=== PATIENT | male | born 1940 | race Caucasian/White ===

== ENCOUNTER → 2016-11-12 | Outpatient (CLI) | payer MEDICARE ==
[~2016-11-12] MED LIST: /METO25TAB PO; ASPI81TA85 PO; ENAL20TA PO; ENDO7.5T7 PO; FENO134C PO; FINA5TAB2 PO; FLOM5CAP PO; GABA300C3 PO; GLYB5TAB5 PO; JANU100T PO; LASI80TA PO; LEVO500T PO; LIDO4SO TOP; METF1000 PO; OMEP20CA3 PO; OXYB5TAB PO; OXYC1TAB16 PO; PRAV80TA2 PO; SING4GRA PO; TERA5CA PO; TESTPOW5 TD; VENTAER IN; VITA200016 PO; VITA200019 PO; VITACAP31 PO; WARF4TAB28 PO; [UNRECOGNIZED DRUG - CODE] PO; singulair PO
--- NOTE | 2016-11-25 01:15 | ECWPNPC ---
PATIENT NAME: CHUYITA CHEN : 1940 GENDER: MALE VISIT DATE: 11/12/2016 DISCHARGE DATE: 11/12/16 1200 VISIT LOCKED DATE TIME: PHYSICIAN: DEV HERNANDEZ RESOURCE: DEV HERNANDEZ REASON FOR APPOINTMENT 1. POST FACET HISTORY OF PRESENT ILLNESS HISTORY OF PRESENT ILLNESS: HERE FOR POST PROCEDURE F/U.HAD DIAGNOSTIC RIGHT LUMBAR FACET BLOCK #2 ON 09-04-16.HOURLY PAIN DIARY REVIEWED.THIS IS SHOWING 0/10 VAS X 24HRS POST PROCEURE AND TODAY STATES HE IS 3/10 VAS. DISCUSSED RADIOFREQUENCY PROCEDURE.PAIN IS LOCATED IN RIGHT LOW BACK AND DESCRIBED CONSTATNT SHARP PAIN.PAIN IS AGGREVATED BY PROLONGED STANDING OR WALKING. FALL RISK SCREENING: SCREENING :NO FALLS IN THE PAST YEAR CURRENT MEDICATIONS TAKING VENTOLIN HFA 1-2 PUFFS NEEDED INHALATION NEEDED, NOTES: 10/19/162299 TAKING ASPIRIN ADULT LOW STRENGTH 81 MG 1 TABLET ORALLY ONCE A DAY, NOTES: 10/19/16 0800 TAKING ENALAPRIL MALEATE 20 MG TABLET 1 TABLET ORALLY TWICE A DAY, NOTES: 10/19/16 170 TAKING FINASTERIDE 5 MG TABLET 1 TABLET ORALLY ONCE A DAY, NOTES: 10/19/162299 TAKING FENOFIBRATE 43 MG TABLET 1 TABLET ORALLY ONCE A DAY, NOTES: 10/19/162299 TAKING LIDOCAINE HCL 4 % CREAM EXTERNALLY THREE TIMES DAILY NEEDED, NOTES: NONE RECENTLY TAKING METFORMIN HCL 1000 MG TABLET 1 TABLET WITH MEALS ORALLY TWICE A DAY, NOTES: 10/19/16 170 TAKING METOPROLOL TARTRATE 25 MG TABLET 1 TABLET ORALLY TWICE A DAY, NOTES: 10/20/16 0600 TAKING MONTELUKAST SODIUM 10 MG TABLET ORALLY ONCE A DAY, NOTES: 10/19/16 230 TAKING JANUVIA 50 MG TABLET 1 TABLET ORALLY ONCE A DAY, NOTES: 10/19/16 0800 TAKING VITAMIN D 2000 UNIT CAPSULE 2 ORALLY DAILY, NOTES: 10/20/16 0600 TAKING WARFARIN SODIUM 4 MG TABLET 1-2 TABLET ORALLY DAILY DIRECTED, NOTES: 10/12/16 230 TAKING ATORVASTATIN CALCIUM 40 MG TABLET 1 TABLET ORALLY ONCE A DAY, NOTES: 10/19/16 2400 TAKING GLIPIZIDE 10 MG TABLET 1 TABLET ORALLY TWICE A DAY, NOTES: 10/19/16 230 TAKING ALBUTEROL SULFATE (2.5 MG/3ML) 0.083% NEBULIZATION SOLUTION 3 ML INHALATION THREE TIMES A DAY NEEDED, NOTES: 10/19/162299 TAKING TRIMETHOPRIM 100 MG TABLET 1 TABLET ORALLY ONCE A DAY, NOTES: 10/19/162299 TAKING HYDROCHLOROTHIAZIDE 12.5 MG TABLET ORALLY DAILY, NOTES: 10/19/162299 TAKING SODIUM POLYSTYRENE SULFONATE 15 GM/60ML SUSPENSION 15 ML COMBINATION ONCE A DAY, NOTES: 10/19/16 1600 TAKING TAMSULOSIN HCL 0.4 MG CAPSULE EXTENDED RELEASE ORALLY , NOTES: 10/19/162299 TAKING GABAPENTIN 300 MG CAPSULE 1 CAPSULE ORALLY THREE TIMES A DAY, NOTES: 10/19/162299 TAKING ENDOCET 10-325 MG TABLET 1 ORALLY Q6-8H PRN MDD3 TRACEY, NOTES: 10/19/162299 NOT-TAKING FLOMAX 0.4 MG CAPSULE ORALLY ONCE A DAY, NOTES: 10/19/162299 NOT-TAKING VALIUM 10 MG TABLET 1 ORALLY 1 TAB 1HR PRE PROCEDURE MDD1, NOTES: 06/09/16 1130AM NOT-TAKING VALIUM 10 MG TABLET 1 ORALLY 1 TAB 1HR PRE PROC MDD1 MEDICATION LIST REVIEWED AND RECONCILED WITH THE PATIENT PAST MEDICAL HISTORY 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 NEW PATIENT PAIN DIARY TODAY'S VISITNOTES FROM 0-10, WHAT LEVEL IS YOUR PAIN TODAY?0 PAIN CLINIC PFS, CLERGY, PUBLIC HEALTH REFERRALS PFS REFERRAL NEEDED?NO CLERGY REFERRAL NEEDED?NO PUBLIC HEALTH REFERRAL NEEDED?NO WAS THE PROVIDER NOTIFIED OF ANY PERTINENT INFO?NO PFS REFERRAL NEEDED?NO CLERGY REFERRAL NEEDED?NO PUBLIC HEALTH REFERRAL NEEDED?NO WAS THE PROVIDER NOTIFIED OF ANY PERTINENT INFO?NO REVIEW OF SYSTEMS CONSTITUTIONAL: ANY CHANGE IN YOUR MEDICAL CONDITION? NO . CHILLS NO . FEVER NO . INFECTION: DO YOU HAVE NEW INFECTIONS? NO . DO YOU HAVE HISTORY OF MRSA? NO . MUSCULOSKELETAL: ANY NEW PATTERNS OF PAIN OR NUMBNESS? NO . GASTROENTEROLOGY: ANY NEW CHANGE IN BOWEL CONTROL? NO . GENITOURINARY: ANY NEW CHANGE IN BLADDER CONTROL? NO . IS THERE A CHANCE YOU COULD BE ? NO . HEMATOLOGY/LYMPH: DO YOU TAKE ANY BLOOD THINNERS? (FOR EXAMPLE- COUMADIN, PLAVIX, AGGRENOX, PLATEL, PRADAXA, OR XARELTO) YES, COUMADIN . WHEN WAS YOUR LAST DOSE? DATE:11/11/16 TIME: 2300 . NEUROLOGY: HAVE YOU FALLEN IN THE PAST 6 MONTHS? NO . ANY NEW EXTREMITY NUMBNESS OR WEAKNESS? NO . CARDIOLOGY: DO YOU HAVE A PACEMAKER OR DEFIBRILLATOR? NO . RESPIRATORY: HAVE YOU BEEN SICK IN THE PAST WEEK? NO . FEVER NO . FLU LIKE SYMPTOMS? NO . COUGH NO . INTEGUMENTARY: DO YOU HAVE ANY RASHES OR OPEN SORES? NO . ALLERGIC/IMMUNO: ARE YOU ALLERGIC TO SHELLFISH OR IV DYE? NO . ANY NEW ALLERGIES? NO . PSYCHIATRIC: DO YOU HAVE THOUGHTS OF HURTING YOURSELF OR SOMEONE ELSE? NO . ARE YOU ABUSED, NEGLECTED, OR IN AN UNSAFE ENVIRONMENT? NO . ENDOCRINOLOGY: ARE YOU DIABETIC? YES . OTHER: DO YOU NEED ANY PRESCRIPTIONS? NO . IF YES, PLEASE LIST: ____ . ANY NEW PROBLEMS WITH YOUR MEDICATIONS? NO . WHEN DID YOU LAST EAT? ____ . WHEN DID YOU LAST DRINK? ____ . WHAT DID YOU LAST DRINK? ____ . NAME OF PERSON DRIVING YOU HOME? ____ . DO YOU HAVE ANY OTHER QUESTIONS OR CONCERNS NO . REVIEWED BY: PROVIDER: DEV DELGADO . VITAL SIGNS WT 203 LBS, HT 71 IN, BMI 28.31 INDEX, BP 123/60 MM HG, HR 79 /MIN, RR 18 /MIN, TEMP 96.5 F, OXYGEN SAT % 93, NA INITIALS TL 1118, REVIEWED BY: AD. EXAMINATION GENERAL EXAMINATION: LUNGS:LUNG SOUNDS ARE CLEAR. HEART:HEART RATE REGULAR. MUSCULOSKELETAL:*, PERILUMBAR TENDERNESS R>L. MUSCLE STRENGTH TESTING 3/5 RIGHT AND 5/5 LEFT . DIAGNOSTIC: . ASSESSMENTS LOW BACK PAIN OF OVER 3 MONTHS DURATION - M54.5 (PRIMARY) TREATMENT LOW BACK PAIN OF OVER 3 MONTHS DURATION REFILL ENDOCET TABLET, 10-325 MG, 1, ORALLY, Q6-8H PRN MDD3 TRACEY, 30 DAY(S), 90, REFILLS 0, NOTES: 10/19/16 2300 RF FACET LUMBAR SACRAL EA NOTES: UNDERSTANDING RADIOFREQUENCY DENERVATION MATERIAL WAS PRINTED. PROCEDURE CODES FA211 ESTABILISHED PATIENT [facility] CHARGE G8730 PAIN ASSESS POS TOOL F/U PLAN DOC G8427 DOC MEDS VERIFIED W/PT OR RE FOLLOW UP 1 MOS POST (REASON: RF RIGHT) ELECTRONICALLY SIGNED BY DANNY LEE ON 11/24/2016 AT 02:10 PM EST DISCLAIMER : THIS IS A VISIT SUMMARY EXTRACTED FROM THE [employer] CHART. IT IS NOT A COPY OF THE [employer] PROGRESS NOTE. MTDD
== END ==
LOC: M PAIN 10:40
PROVIDERS: ATTEND Nurse Practitioner Family
DX: Z09 Encounter for follow-up examination after completed treatment for conditions other than malignant neoplasm (principal); M54.5 Low back pain; E11.9 Type 2 diabetes mellitus without complications; I48.91 Unspecified atrial fibrillation; J30.2 Other seasonal allergic rhinitis; J30.81 Allergic rhinitis due to animal (cat) (dog) hair and dander; Z79.01 Long term (current) use of anticoagulants; Z79.82 Long term (current) use of aspirin; Z79.84 Long term (current) use of oral hypoglycemic drugs; Z79.899 Other long term (current) drug therapy; Z86.79 Personal history of other diseases of the circulatory system

== ENCOUNTER → 2017-01-11 | Outpatient (CLI) | payer MEDICARE ==
[~2017-01-11] MED LIST changes: +BUPIVACAINE HCL 0.25% 30 ML VIAL As Ordered ONE; +ISOVUE-M 300 61% 15ML VIAL (Q9967) As Ordered ONE; +LIDOCAINE 1% SDV INJ 30 ML VIAL As Ordered ONE; +TRIAMCINOLONE ACETONIDE SUSP 40 MG/ML VIAL (J3301) As Ordered ONE
--- NOTE | 2017-01-11 13:34 | REP ---
Partial lumbar spine series: Two views. History: Injection procedure for pain. 1 minute and 55 seconds of fluoroscopy time is reported. Findings: A sequence of three fluoroscopically obtained last image hold spot radiographs of the lumbar spine document various needle positions for injection procedure. Signed by Sandro Alex MD 01/11/2017 07:16 P
--- NOTE | 2017-01-17 23:50 | ECWPNPC ---
PATIENT NAME: CHUYITA CHEN : 1940 GENDER: MALE VISIT DATE: 01/11/2017 DISCHARGE DATE: 01/11/17 1315 VISIT LOCKED DATE TIME: PHYSICIAN: ARMANI ROSA RESOURCE: ARMANI ROSA REASON FOR APPOINTMENT 1. RADIOFREQUENCY HISTORY OF PRESENT ILLNESS HISTORY OF PRESENT ILLNESS: PAIN THE PATIENT DESCRIBES THE PAIN... FALL RISK SCREENING: SCREENING :NO FALLS IN THE PAST YEAR CURRENT MEDICATIONS TAKING VENTOLIN HFA 1-2 PUFFS NEEDED INHALATION NEEDED, NOTES: 01/11 0800 TAKING ASPIRIN ADULT LOW STRENGTH 81 MG 1 TABLET ORALLY ONCE A DAY, NOTES: 01/10 0700 TAKING ENALAPRIL MALEATE 20 MG TABLET 1 TABLET ORALLY TWICE A DAY, NOTES: 01/11 0700 TAKING FINASTERIDE 5 MG TABLET 1 TABLET ORALLY ONCE A DAY, NOTES: 01/10 12PM TAKING FENOFIBRATE 43 MG TABLET 1 TABLET ORALLY ONCE A DAY, NOTES: 01/10 12PM TAKING LIDOCAINE HCL 4 % CREAM EXTERNALLY THREE TIMES DAILY NEEDED, NOTES: NONE RECENTLY TAKING METFORMIN HCL 1000 MG TABLET 1 TABLET WITH MEALS ORALLY TWICE A DAY, NOTES: 01/10 6PM TAKING METOPROLOL TARTRATE 25 MG TABLET 1 TABLET ORALLY TWICE A DAY, NOTES: 01/10 6PM TAKING MONTELUKAST SODIUM 10 MG TABLET ORALLY ONCE A DAY, NOTES: 01/10 11PM TAKING JANUVIA 50 MG TABLET 1 TABLET ORALLY ONCE A DAY, NOTES: 01/10 6PM TAKING VITAMIN D 2000 UNIT CAPSULE 2 ORALLY DAILY, NOTES: 01/11 7AM TAKING WARFARIN SODIUM 4 MG TABLET 1-2 TABLET ORALLY DAILY DIRECTED, NOTES: 01/04 2300 TAKING ATORVASTATIN CALCIUM 40 MG TABLET 1 TABLET ORALLY ONCE A DAY, NOTES: 01/10 6PM TAKING GLIPIZIDE 10 MG TABLET 1 TABLET ORALLY TWICE A DAY, NOTES: 01/10 6PM TAKING ALBUTEROL SULFATE (2.5 MG/3ML) 0.083% NEBULIZATION SOLUTION 3 ML INHALATION THREE TIMES A DAY NEEDED, NOTES: 01/11 3AM TAKING TRIMETHOPRIM 100 MG TABLET 1 TABLET ORALLY ONCE A DAY, NOTES: 01/10 7PM TAKING HYDROCHLOROTHIAZIDE 12.5 MG TABLET ORALLY DAILY, NOTES: 01/11 7AM TAKING SODIUM POLYSTYRENE SULFONATE 15 GM/60ML SUSPENSION 15 ML COMBINATION ONCE A DAY, NOTES: 01/10 7PM TAKING TAMSULOSIN HCL 0.4 MG CAPSULE EXTENDED RELEASE ORALLY , NOTES: 01/10 7PM TAKING GABAPENTIN 300 MG CAPSULE 1 CAPSULE ORALLY THREE TIMES A DAY, NOTES: 01/10 6AM TAKING ENDOCET 10-325 MG TABLET 1 ORALLY Q6-8H PRN MDD3 TRACEY, NOTES: 01/10 6AM NOT-TAKING FLOMAX 0.4 MG CAPSULE ORALLY ONCE A DAY, NOTES: 10/19/16 2300 NOT-TAKING VALIUM 10 MG TABLET 1 ORALLY 1 TAB 1HR PRE PROCEDURE MDD1, NOTES: 06/09/16 1130AM NOT-TAKING VALIUM 10 MG TABLET 1 ORALLY 1 TAB 1HR PRE PROC MDD1 MEDICATION LIST REVIEWED AND RECONCILED WITH THE PATIENT PAST MEDICAL HISTORY 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 NEW PATIENT PAIN DIARY TODAY'S VISITNOTES FROM 0-10, WHAT LEVEL IS YOUR PAIN TODAY?0 PAIN CLINIC PFS, CLERGY, PUBLIC HEALTH REFERRALS PFS REFERRAL NEEDED?NO CLERGY REFERRAL NEEDED?NO PUBLIC HEALTH REFERRAL NEEDED?NO WAS THE PROVIDER NOTIFIED OF ANY PERTINENT INFO?NO PFS REFERRAL NEEDED?NO CLERGY REFERRAL NEEDED?NO PUBLIC HEALTH REFERRAL NEEDED?NO WAS THE PROVIDER NOTIFIED OF ANY PERTINENT INFO?NO REVIEW OF SYSTEMS CONSTITUTIONAL: ANY CHANGE IN YOUR MEDICAL CONDITION? NO . CHILLS NO . FEVER NO . INFECTION: DO YOU HAVE NEW INFECTIONS? NO . DO YOU HAVE HISTORY OF MRSA? NO . MUSCULOSKELETAL: ANY NEW PATTERNS OF PAIN OR NUMBNESS? NO . GASTROENTEROLOGY: ANY NEW CHANGE IN BOWEL CONTROL? NO . GENITOURINARY: ANY NEW CHANGE IN BLADDER CONTROL? NO . IS THERE A CHANCE YOU COULD BE ? NO . HEMATOLOGY/LYMPH: DO YOU TAKE ANY BLOOD THINNERS? (FOR EXAMPLE- COUMADIN, PLAVIX, AGGRENOX, PLATEL, PRADAXA, OR XARELTO) YES, 01/04/17 2300 WARFARIN . WHEN WAS YOUR LAST DOSE? DATE: TIME: . NEUROLOGY: HAVE YOU FALLEN IN THE PAST 6 MONTHS? NO . ANY NEW EXTREMITY NUMBNESS OR WEAKNESS? NO . CARDIOLOGY: DO YOU HAVE A PACEMAKER OR DEFIBRILLATOR? NO . RESPIRATORY: HAVE YOU BEEN SICK IN THE PAST WEEK? NO . FEVER NO . FLU LIKE SYMPTOMS? NO . COUGH NO . INTEGUMENTARY: DO YOU HAVE ANY RASHES OR OPEN SORES? NO . ALLERGIC/IMMUNO: ARE YOU ALLERGIC TO SHELLFISH OR IV DYE? NO . ANY NEW ALLERGIES? NO . PSYCHIATRIC: DO YOU HAVE THOUGHTS OF HURTING YOURSELF OR SOMEONE ELSE? NO . ARE YOU ABUSED, NEGLECTED, OR IN AN UNSAFE ENVIRONMENT? NO . ENDOCRINOLOGY: ARE YOU DIABETIC? YES, FSBS 147 . OTHER: DO YOU NEED ANY PRESCRIPTIONS? NO . IF YES, PLEASE LIST: ____ . ANY NEW PROBLEMS WITH YOUR MEDICATIONS? NO . WHEN DID YOU LAST EAT? 01/10 2300 . WHEN DID YOU LAST DRINK? 01/11 0600 . WHAT DID YOU LAST DRINK? WATER . NAME OF PERSON DRIVING YOU HOME? CAMACHO - . DO YOU HAVE ANY OTHER QUESTIONS OR CONCERNS OCCASIONAL SMOKER, REFUSES ANY SMOKING CESSATION COUSELING AT THIS TIME . REVIEWED BY: PROVIDER: . VITAL SIGNS WT 210 LBS, HT 71 IN, BMI 29.29 INDEX, BP 127/58 MM HG, HR 83 /MIN, RR 18 /MIN, TEMP 96.5 F, OXYGEN SAT % 93, BLOOD GLUCOSE LEVEL 147, SAFE IN ENV? (Y/N) Y, NA INITIALS TL 1051, REVIEWED BY: DS. ASSESSMENTS SPONDYLOSIS WITHOUT MYELOPATHY OR RADICULOPATHY, LUMBAR REGION - M47.816 (PRIMARY) SPONDYLOSIS WITHOUT MYELOPATHY OR RADICULOPATHY, LUMBOSACRAL REGION - M47.817 PROCEDURES PN RADIOFREQUENCY PRE PROCEDURE DIAGNOSES 1. LUMBAR SPONDYLOSIS. 2. LUMBOSACRAL SPONDYLOSIS POST PROCEDURE DIAGNOSES 1. LUMBAR SPONDYLOSIS. 2. LUMBOSACRAL SPONDYLOSIS PROCEDURE RIGHT L4-L5 AND RIGHT L5-S1 LUMBAR FACET RADIOFREQUENCY SURGEON DR. ARMANI ROSA PURCHASING MANAGER NONE ANESTHESIA LOCAL PRE PROCEDURE REPORT THE PATIENT HAS HISTORY OF CHRONIC LOW BACK PAIN. I EVALUATE THE PATIENT AND REVIEWED THE CHART. I WENT OVER THE RISKS, ALTERNATIVES, AND BENEFITS ASSOCIATED WITH THIS PROCEDURE. THE PATIENT WOULD LIKE TO PROCEED AND GIVE CONSENT TO PERFORMED THE PROCEDURE. THE PATIENT DENIES UNEXPLAINABLE WEIGHT LOSS, FEVER, CHILLS, OR NEW CHANGES IN URINARY OR BOWEL CONTROL DESCRIPTION OF PROCEDURE THE PATIENT WAS BROUGHT TO THE PROCEDURE ROOM AND PLACED IN THE PRONE POSITION. THE LUMBOSACRAL AREA WAS CLEANED WITH CHLORAPREP SOLUTION AND DRAPED ASEPTICALLY. THE PROCEDURE WAS DONE UNDER STERILE CONDITIONS. I CHECKED LATERALITY AND THE LEVEL WHERE THE PROCEDURE WAS GOING TO BE PERFORMED WITH THE PATIENT AND THE SUPPORTING STAFF AT THE MOMENT OF THE TIME OUT IN THE PROCEDURE ROOM. UNDER FLUOROSCOPIC GUIDANCE, TARGETS WERE SELECTED AT THE INTERSECTION OF THE RIGHT TRANSVERSE PROCESS OF L4, L5 AND ALA OF S1 WITH ITS RESPECTIVE SUPERIOR ARTICULAR PROCESS. LIDOCAINE WAS USED TO NUMB THE SKIN AND THE SUBCUTANEOUS TISSUE BELOW IT. RADIOFREQUENCY NEEDLES 22-GAUGE 15 CM LONG WITH 10 MM ACTIVE CURVE TIP WERE ADVANCED UNDER FLUOROSCOPIC GUIDANCE AND FOLLOWING PATIENT FEEDBACK UNTIL THE TARGET AREA WAS REACHED. POSITION OF THE NEEDLES WAS VERIFIED WITH AP AND LATERAL VIEWS. AFTER PROPER POSITION OF THE NEEDLE WAS ACHIEVED, WE WORKED WITH THE RIGHT SELECTED MEDIAN BRANCHES OF L3, L4 AND THE DORSAL RAMI OF L5. WE MEASURED THE CORRESPONDING IMPEDANCES, SENSORY STIMULATION AND MOTOR RESPONSES INDICATED IN THE RADIOFREQUENCY WORKSHEET. POSITION OF THE NEEDLES WAS VERIFIED AGAIN WITH AP AND LATERAL VIEWS. LIDOCAINE 1%, 2 ML, WAS INJECTED AT EACH LEVEL. RADIOFREQUENCY WAS DONE AT EACH LEVEL AT 80 DEGREES FOR 90 SECONDS. AFTER RADIOFREQUENCY WAS DONE, THE PATIENT RECEIVED BUPIVACAINE 0.125% 1 CC WITH KENALOG 5 MG AT EACH SITE. THERE WAS NO EVIDENCE OF BLOOD, PARESTHESIA OR CEREBROSPINAL FLUID DURING THE PROCEDURE. THE PATIENT WAS SENT TO THE RECOVERY ROOM. THE PATIENT WAS MOVING THE EXTREMITIES AND DOING WELL. THERE WAS NO COMPLICATION DURING THE PROCEDURE. FLUOROSCOPY TIME WAS I MINUTE 55 SECONDS POST PROCEDURE NOTE THE PATIENT WILL BE SEEN IN A FOLLOW UP IN THE NEXT FEW WEEKS. INSTRUCTIONS WERE GIVEN, QUESTIONS WERE ANSWERED, AND THE PATIENT EXPRESSED UNDERSTANDING AND AGREES WITH THE PLAN. I, VICTOR M TAVERA, DOCUMENTED THE ABOVE INFORMATION ACTING A SCRIBE FOR DR. ROSA. I, DR. ROSA, HAVE REVIEWED THE ABOVE DOCUMENT, SCRIBED BY VICTOR M TAVERA, AND I VERIFY THAT IT IS ACCURATE DIAGNOSTIC IMAGING [facility] FACET BLOCK (PAIN)[id number] PROCEDURE CODES 07757 DESTROY LUMB/SAC FACET JNT 83845 DESTROY L/S FACET JNT ADDL 6045F RADXPS IN END [id number] DISPOSITION & COMMUNICATION FOLLOW UP 3 WEEKS ELECTRONICALLY SIGNED BY ARMANI ROSA MD ON 01/17/2017 AT 08:54 PM EDT DISCLAIMER : THIS IS A VISIT SUMMARY EXTRACTED FROM THE [employer] CHART. IT IS NOT A COPY OF THE [employer] PROGRESS NOTE. MTDD
== END ==
LOC: M PAIN 11:00
PROVIDERS: ATTEND Anesthesiology
DX: G89.29 Other chronic pain (principal); M48.06 Spinal stenosis, lumbar region; M47.816 Spondylosis without myelopathy or radiculopathy, lumbar region; M47.817 Spondylosis without myelopathy or radiculopathy, lumbosacral region; E11.9 Type 2 diabetes mellitus without complications; I48.91 Unspecified atrial fibrillation; J30.89 Other allergic rhinitis; L23.81 Allergic contact dermatitis due to animal (cat) (dog) dander; Z79.891 Long term (current) use of opiate analgesic; Z79.82 Long term (current) use of aspirin; Z79.84 Long term (current) use of oral hypoglycemic drugs; Z79.899 Other long term (current) drug therapy; Z86.79 Personal history of other diseases of the circulatory system
CPT/HCPCS: 36415; 64635; 64636; 85610; J3301; Q9967

== ENCOUNTER → 2017-01-11 | Outpatient (CLI) | payer MEDICARE ==
[~2017-01-11] MED LIST changes: -BUPIVACAINE HCL 0.25% 30 ML VIAL As Ordered ONE; -ISOVUE-M 300 61% 15ML VIAL (Q9967) As Ordered ONE; -LIDOCAINE 1% SDV INJ 30 ML VIAL As Ordered ONE; -TRIAMCINOLONE ACETONIDE SUSP 40 MG/ML VIAL (J3301) As Ordered ONE
[2017-01-11 10:43] LABS: INR 0.96
== END ==
LOC: M LAB 11-12 09:50
PROVIDERS: ATTEND Nurse Practitioner Family
DX: M48.06 Spinal stenosis, lumbar region (principal)

== ENCOUNTER → 2017-02-03 | Outpatient (CLI) | payer MEDICARE ==
[~2017-02-03] MED LIST changes: +GABA-282 PO; -GABA300C3 PO
--- NOTE | 2017-02-11 01:17 | ECWPNPC ---
PATIENT NAME: CHUYITA CHEN : 1940 GENDER: MALE VISIT DATE: 02/03/2017 DISCHARGE DATE: 02/03/17 1221 VISIT LOCKED DATE TIME: PHYSICIAN: DEV HERNANDEZ RESOURCE: DEV HERNANDEZ REASON FOR APPOINTMENT 1. POST RF HISTORY OF PRESENT ILLNESS HISTORY OF PRESENT ILLNESS: HERE FOR POST PROCEDURE F/U.HAD RIGHT L4/5-L5/S1 RADIOFREQUENCY ON 01-11-17.REPORTS SIGNIFICANT IMPROVEMENT IN PAIN POST PROCEDURE.RATING PAIN VAS 3/10.REPORTS ENDOCET 10/325 EFFECTIVE AT REDUCING PAIN.DESCRIBES PAIN CONSTANT AND SHARP. PAIN THE PATIENT DESCRIBES THE PAIN... FALL RISK SCREENING: SCREENING :NO FALLS IN THE PAST YEAR CURRENT MEDICATIONS TAKING VENTOLIN HFA 1-2 PUFFS NEEDED INHALATION NEEDED, NOTES: 01/11 0800 TAKING ASPIRIN ADULT LOW STRENGTH 81 MG 1 TABLET ORALLY ONCE A DAY, NOTES: 01/10 0700 TAKING ENALAPRIL MALEATE 20 MG TABLET 1 TABLET ORALLY TWICE A DAY, NOTES: 01/11 0700 TAKING FINASTERIDE 5 MG TABLET 1 TABLET ORALLY ONCE A DAY, NOTES: 01/10 12PM TAKING FENOFIBRATE 43 MG TABLET 1 TABLET ORALLY ONCE A DAY, NOTES: 01/10 12PM TAKING LIDOCAINE HCL 4 % CREAM EXTERNALLY THREE TIMES DAILY NEEDED, NOTES: NONE RECENTLY TAKING METFORMIN HCL 1000 MG TABLET 1 TABLET WITH MEALS ORALLY TWICE A DAY, NOTES: 01/10 6PM TAKING METOPROLOL TARTRATE 25 MG TABLET 1 TABLET ORALLY TWICE A DAY, NOTES: 01/10 6PM TAKING MONTELUKAST SODIUM 10 MG TABLET ORALLY ONCE A DAY, NOTES: 01/10 11PM TAKING JANUVIA 50 MG TABLET 1 TABLET ORALLY ONCE A DAY, NOTES: 01/10 6PM TAKING VITAMIN D 2000 UNIT CAPSULE 2 ORALLY DAILY, NOTES: 01/11 7AM TAKING WARFARIN SODIUM 4 MG TABLET 1 TABLET ORALLY DAILY DIRECTED, NOTES: 01/04 2300 TAKING ATORVASTATIN CALCIUM 40 MG TABLET 1 TABLET ORALLY ONCE A DAY, NOTES: 01/10 6PM TAKING GLIPIZIDE 10 MG TABLET 1 TABLET ORALLY TWICE A DAY, NOTES: 01/10 6PM TAKING ALBUTEROL SULFATE (2.5 MG/3ML) 0.083% NEBULIZATION SOLUTION 3 ML INHALATION THREE TIMES A DAY NEEDED, NOTES: 01/11 3AM TAKING HYDROCHLOROTHIAZIDE 12.5 MG TABLET ORALLY DAILY, NOTES: 01/11 7AM TAKING SODIUM POLYSTYRENE SULFONATE 15 GM/60ML SUSPENSION 15 ML COMBINATION ONCE A DAY, NOTES: 01/10 7PM TAKING TAMSULOSIN HCL 0.4 MG CAPSULE EXTENDED RELEASE ORALLY , NOTES: 01/10 7PM TAKING GABAPENTIN 300 MG CAPSULE 1 CAPSULE ORALLY THREE TIMES A DAY, NOTES: 01/10 6AM TAKING ENDOCET 10-325 MG TABLET 1 ORALLY Q6-8H PRN MDD3 TRACEY, NOTES: 01/10 6AM NOT-TAKING FLOMAX 0.4 MG CAPSULE ORALLY ONCE A DAY, NOTES: 10/19/16 2300 NOT-TAKING VALIUM 10 MG TABLET 1 ORALLY 1 TAB 1HR PRE PROCEDURE MDD1, NOTES: 06/09/16 1130AM NOT-TAKING VALIUM 10 MG TABLET 1 ORALLY 1 TAB 1HR PRE PROC MDD1 DISCONTINUED TRIMETHOPRIM 100 MG TABLET 1 TABLET ORALLY ONCE A DAY, NOTES: 01/10 7PM MEDICATION LIST REVIEWED AND RECONCILED WITH THE PATIENT PAST MEDICAL HISTORY 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 REVIEW OF SYSTEMS CONSTITUTIONAL: ANY CHANGE IN YOUR MEDICAL CONDITION? NO . CHILLS NO . FEVER NO . INFECTION: DO YOU HAVE NEW INFECTIONS? NO . DO YOU HAVE HISTORY OF MRSA? NO . MUSCULOSKELETAL: ANY NEW PATTERNS OF PAIN OR NUMBNESS? NO . GASTROENTEROLOGY: ANY NEW CHANGE IN BOWEL CONTROL? NO . GENITOURINARY: ANY NEW CHANGE IN BLADDER CONTROL? NO . IS THERE A CHANCE YOU COULD BE ? NO . HEMATOLOGY/LYMPH: DO YOU TAKE ANY BLOOD THINNERS? (FOR EXAMPLE- COUMADIN, PLAVIX, AGGRENOX, PLATEL, PRADAXA, OR XARELTO) YES COUMADIN . WHEN WAS YOUR LAST DOSE? DATE: TIME: . NEUROLOGY: HAVE YOU FALLEN IN THE PAST 6 MONTHS? NO . ANY NEW EXTREMITY NUMBNESS OR WEAKNESS? NO . CARDIOLOGY: DO YOU HAVE A PACEMAKER OR DEFIBRILLATOR? NO . RESPIRATORY: HAVE YOU BEEN SICK IN THE PAST WEEK? NO . FEVER NO . FLU LIKE SYMPTOMS? NO . COUGH NO . INTEGUMENTARY: DO YOU HAVE ANY RASHES OR OPEN SORES? NO . ALLERGIC/IMMUNO: ARE YOU ALLERGIC TO SHELLFISH OR IV DYE? NO . ANY NEW ALLERGIES? NO . PSYCHIATRIC: DO YOU HAVE THOUGHTS OF HURTING YOURSELF OR SOMEONE ELSE? NO . ARE YOU ABUSED, NEGLECTED, OR IN AN UNSAFE ENVIRONMENT? NO . ENDOCRINOLOGY: ARE YOU DIABETIC? YES . OTHER: DO YOU NEED ANY PRESCRIPTIONS? NO . IF YES, PLEASE LIST: ____ . ANY NEW PROBLEMS WITH YOUR MEDICATIONS? NO . WHEN DID YOU LAST EAT? ____ . WHEN DID YOU LAST DRINK? ____ . WHAT DID YOU LAST DRINK? ____ . NAME OF PERSON DRIVING YOU HOME? ____ . DO YOU HAVE ANY OTHER QUESTIONS OR CONCERNS NO . REVIEWED BY: PROVIDER: DEV DELGADO . VITAL SIGNS WT 210.0 LBS, HT 71 IN, BMI 29.29 INDEX, BP 116/54 MM HG, HR 85 /MIN, RR 18 /MIN, TEMP 98.1 F, OXYGEN SAT % 91%, NA INITIALS TL 1127, REVIEWED BY: MLF. EXAMINATION GENERAL EXAMINATION: LUNGS:LUNG SOUNDS ARE CLEAR. HEART:HEART RATE REGULAR. MUSCULOSKELETAL:*, PERILUMBAR TENDERNESS R>L. MUSCLE STRENGTH TESTING 3/5 RIGHT AND 5/5 LEFT . DIAGNOSTIC: . ASSESSMENTS LOW BACK PAIN OF OVER 3 MONTHS DURATION - M54.5 CHRONIC PRESCRIPTION OPIATE USE - Z79.891 TREATMENT LOW BACK PAIN OF OVER 3 MONTHS DURATION REFILL ENDOCET TABLET, 10-325 MG, 1, ORALLY, Q6-8H PRN MDD3 TRACEY, 30 DAY(S), 90, REFILLS 0, NOTES: 01/10 6AM NOTES: PATIENT WAS ADVISED TO START A WALKING PROGRAM TO STRENGTHEN LUMBAR PARASPINAL MUSCLES AND IMPROVE MOBILITY. THEY WERE ADVISED THAT THIS WILL IMPROVE WEIGHT LOSS AND ALSO DEPRESSION/FIBROMYALGIA SYMPTOMS. ADVISED TO WALK 10 MINUTES EVERY OTHER DAY ON A FLAT SURFACE. EMPHASIZED THE IMPORTANCE OF DOING THIS CONSISTANTLY AND NOT SPORATICALLY TO AVOID INJURY. STRONG ADVISED NOT TO DO MORE THAN 10 MINUTES EVERY OTHER DSY FOR THE FIRST 4 WEEKS. OTHERS NOTES: ISTOP REGISTRY REVIEWED AND DEMNOSTRATES COMPLLIANCE. BRINGS IN MEDICATIONS WHICH IS APPROPRIATE FOR WHAT WAS DISPENSED. RECENT URINE TOXICOLOGY REVIEWED. NO UNAUTHORIZED MEDICATIONS. NO ILLICIT SUBSTANCES AND PRESCRIBED MEDICATIONS WERE PRESENT. , RISKS AND BENEFITS OF NARCOTIC/OPIOD MEDICATIONS WERE REVIEWED WITH PATIENT - THIS INCLUDES BUT IS NOT LIMITED TO RISK OF DEPENDANCE/DEVELOPMENT OF ADDICTION, MOOD DISTURBANCE AND DEPRESSION, OSTEOPOROSIS, HORMONAL AND LABIDAL CHANGES, RESPIRATORY DEPRESSION AND . PATIENT IS ADVISED NOT TO DRIVE WHILE ON THESE MEDICATIONS. PROCEDURE CODES FA211 ESTABILISHED PATIENT [facility] CHARGE G8730 PAIN ASSESS POS TOOL F/U PLAN DOC G8427 DOC MEDS VERIFIED W/PT OR RE DISPOSITION & COMMUNICATION FOLLOW UP 4 WEEKS ELECTRONICALLY SIGNED BY DANNY LEE ON 02/10/2017 AT 06:14 PM EDT DISCLAIMER : THIS IS A VISIT SUMMARY EXTRACTED FROM THE [employer] CHART. IT IS NOT A COPY OF THE [employer] PROGRESS NOTE. RAMANDEEP
== END ==
LOC: M PAIN 11:00
PROVIDERS: ATTEND Nurse Practitioner Family
DX: Z09 Encounter for follow-up examination after completed treatment for conditions other than malignant neoplasm (principal); M54.5 Low back pain; N40.0 Benign prostatic hyperplasia without lower urinary tract symptoms; I25.2 Old myocardial infarction; I48.91 Unspecified atrial fibrillation; E11.9 Type 2 diabetes mellitus without complications; Z79.82 Long term (current) use of aspirin; Z79.891 Long term (current) use of opiate analgesic; Z79.84 Long term (current) use of oral hypoglycemic drugs; Z79.01 Long term (current) use of anticoagulants; Z91.048 Other nonmedicinal substance allergy status

== ENCOUNTER → 2017-03-04 | Outpatient (CLI) | payer MEDICARE ==
--- NOTE | 2017-03-18 01:21 | ECWPNPC ---
PATIENT NAME: CHUYITA CHEN : 1940 GENDER: MALE VISIT DATE: 03/04/2017 DISCHARGE DATE: 03/04/17 1510 VISIT LOCKED DATE TIME: PHYSICIAN: DEV HERNANDEZ RESOURCE: DEV HERNANDEZ HISTORY OF PRESENT ILLNESS HISTORY OF PRESENT ILLNESS: HERE FOR F/U.HAD RF L4/5-L5/S1 ON 01-11-17.WAS DOING WELL BUT HAS BEEN HAVING BALANCE ISSUES AND HAS FALLEN 3X THIS PAST WEEK.RATING PAIN VAS 3/10.DESCRIBES PAIN CONSTANT SHARP PAIN.PAIN HAS BEEN AGGREVATED BY FALLING BUT SEEMS TO BE DISIPATING. PAIN THE PATIENT DESCRIBES THE PAIN... FALL RISK SCREENING: SCREENING :NO FALLS IN THE PAST YEAR CURRENT MEDICATIONS TAKING VENTOLIN HFA 1-2 PUFFS NEEDED INHALATION NEEDED TAKING ASPIRIN ADULT LOW STRENGTH 81 MG 1 TABLET ORALLY ONCE A DAY TAKING ENALAPRIL MALEATE 20 MG TABLET 1 TABLET ORALLY TWICE A DAY TAKING FINASTERIDE 5 MG TABLET 1 TABLET ORALLY ONCE A DAY TAKING FENOFIBRATE 43 MG TABLET 1 TABLET ORALLY ONCE A DAY TAKING LIDOCAINE HCL 4 % CREAM EXTERNALLY THREE TIMES DAILY NEEDED TAKING METFORMIN HCL 1000 MG TABLET 1 TABLET WITH MEALS ORALLY TWICE A DAY TAKING METOPROLOL TARTRATE 25 MG TABLET 1 TABLET ORALLY TWICE A DAY TAKING MONTELUKAST SODIUM 10 MG TABLET ORALLY ONCE A DAY TAKING JANUVIA 50 MG TABLET 1 TABLET ORALLY ONCE A DAY TAKING VITAMIN D 2000 UNIT CAPSULE 2 ORALLY DAILY TAKING WARFARIN SODIUM 4 MG TABLET 1 TABLET ORALLY DAILY DIRECTED TAKING ATORVASTATIN CALCIUM 40 MG TABLET 1 TABLET ORALLY ONCE A DAY TAKING GLIPIZIDE 10 MG TABLET 1 TABLET ORALLY TWICE A DAY TAKING ALBUTEROL SULFATE (2.5 MG/3ML) 0.083% NEBULIZATION SOLUTION 3 ML INHALATION THREE TIMES A DAY NEEDED TAKING HYDROCHLOROTHIAZIDE 12.5 MG TABLET ORALLY DAILY TAKING SODIUM POLYSTYRENE SULFONATE 15 GM/60ML SUSPENSION 15 ML COMBINATION ONCE A DAY TAKING TAMSULOSIN HCL 0.4 MG CAPSULE EXTENDED RELEASE ORALLY TAKING GABAPENTIN 300 MG CAPSULE 1 CAPSULE ORALLY THREE TIMES A DAY TAKING ENDOCET 10-325 MG TABLET 1 ORALLY Q6-8H PRN MDD3 TRACEY NOT-TAKING FLOMAX 0.4 MG CAPSULE ORALLY ONCE A DAY, NOTES: 10/19/16 2300 NOT-TAKING VALIUM 10 MG TABLET 1 ORALLY 1 TAB 1HR PRE PROCEDURE MDD1, NOTES: 06/09/16 1130AM NOT-TAKING VALIUM 10 MG TABLET 1 ORALLY 1 TAB 1HR PRE PROC MDD1 MEDICATION LIST REVIEWED AND RECONCILED WITH THE PATIENT PAST MEDICAL HISTORY 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 NO . CHILLS NO . FEVER NO . INFECTION: DO YOU HAVE NEW INFECTIONS? NO . DO YOU HAVE HISTORY OF MRSA? NO . MUSCULOSKELETAL: ANY NEW PATTERNS OF PAIN OR NUMBNESS? NO . GASTROENTEROLOGY: ANY NEW CHANGE IN BOWEL CONTROL? NO . GENITOURINARY: ANY NEW CHANGE IN BLADDER CONTROL? NO . IS THERE A CHANCE YOU COULD BE ? NO . HEMATOLOGY/LYMPH: DO YOU TAKE ANY BLOOD THINNERS? (FOR EXAMPLE- COUMADIN, PLAVIX, AGGRENOX, PLATEL, PRADAXA, OR XARELTO) YES, COUMADIN . WHEN WAS YOUR LAST DOSE? DATE: TIME: 03/04/17 2300 . NEUROLOGY: HAVE YOU FALLEN IN THE PAST 6 MONTHS? YES, 3X'S LAST WEEK--SCRAPES AND BRUISES ON BACK, LEFT RIBS, PAIN STERUM AND BACK. NOT SEEN &NBSP;. ANY NEW EXTREMITY NUMBNESS OR WEAKNESS? &NBSP;&NBSP; NO&NBSP;. CARDIOLOGY: DO YOU HAVE A PACEMAKER OR DEFIBRILLATOR? NO . RESPIRATORY: HAVE YOU BEEN SICK IN THE PAST WEEK? NO . FEVER NO . FLU LIKE SYMPTOMS? NO . COUGH NO . INTEGUMENTARY: DO YOU HAVE ANY RASHES OR OPEN SORES? NO . ALLERGIC/IMMUNO: ARE YOU ALLERGIC TO SHELLFISH OR IV DYE? NO . ANY NEW ALLERGIES? NO . PSYCHIATRIC: DO YOU HAVE THOUGHTS OF HURTING YOURSELF OR SOMEONE ELSE? NO . ARE YOU ABUSED, NEGLECTED, OR IN AN UNSAFE ENVIRONMENT? NO . ENDOCRINOLOGY: ARE YOU DIABETIC? YES . OTHER: DO YOU NEED ANY PRESCRIPTIONS? YES, LIDOCAINE CREAM, ENDOCET, GABAPENTIN . IF YES, PLEASE LIST: ____ . ANY NEW PROBLEMS WITH YOUR MEDICATIONS? NO . WHEN DID YOU LAST EAT? ____ . WHEN DID YOU LAST DRINK? ____ . WHAT DID YOU LAST DRINK? ____ . NAME OF PERSON DRIVING YOU HOME? ____ . DO YOU HAVE ANY OTHER QUESTIONS OR CONCERNS NO . REVIEWED BY: PROVIDER: DEV DELGADO . VITAL SIGNS WT 220.4 LBS, HT 71 IN, BMI 30.74 INDEX, BP 130/60 MM HG, HR 80 /MIN, RR 20 /MIN, TEMP 98.7 F, OXYGEN SAT % 92%, NA INITIALS TL 1431, REVIEWED BY: ADPT WEIGHED ON PMC SCALE- TL. EXAMINATION GENERAL EXAMINATION: LUNGS:LUNG SOUNDS ARE CLEAR. HEART:HEART RATE REGULAR. MUSCULOSKELETAL:*, PERILUMBAR TENDERNESS R>L. MUSCLE STRENGTH TESTING 3/5 RIGHT AND 5/5 LEFT . DIAGNOSTIC: . ASSESSMENTS LOW BACK PAIN OF OVER 3 MONTHS DURATION - M54.5 (PRIMARY) CHRONIC PRESCRIPTION OPIATE USE - Z79.891 TREATMENT LOW BACK PAIN OF OVER 3 MONTHS DURATION REFILL LIDOCAINE HCL CREAM, 4 %, SMALL AMOUNT TO LOW BACK, EXTERNALLY, THREE TIMES DAILY NEEDED, 30 DAY(S), 1, REFILLS 5 CONTINUE GABAPENTIN CAPSULE, 300 MG, 1 CAPSULE, ORALLY, THREE TIMES A DAY, 30 DAY(S), 90 CAPSULE, REFILLS 2 REFILL ENDOCET TABLET, 10-325 MG, 1, ORALLY, Q6-8H PRN MDD3 TRACEY, 30 DAY(S), 90, REFILLS 0 NOTES: ISTOP REGISTRY REVIEWED AND DEMNOSTRATES COMPLLIANCE. BRINGS IN MEDICATIONS WHICH IS APPROPRIATE FOR WHAT WAS DISPENSED. RECENT URINE TOXICOLOGY REVIEWED. NO UNAUTHORIZED MEDICATIONS. NO ILLICIT SUBSTANCES AND PRESCRIBED MEDICATIONS WERE PRESENT. , # 226 TOBACCO USE SCREENING/INTERVENTION: PATIENT CURRENTLY USED TOBACCO. WAS OFFERED SMOKING CESSATION FOR GUIDANCE IN QUITTING THROUGH THE [facility] QUITS PROGRAM AND THE [facility] CESSATION PROGRAM. , #128 - SCREENING BMI AND F/U PLAN IN : BMI ABOVE NORMAL TODAY. DISCUSSED WITH PATIENT NUTRITIONAL FOOD CHOICES TO ASSIST WITH WEIGHT LOSS. RECCOMMENDED REDUCING SALT, SUGAR, SODA INTAKE. RECOMMEND INCREASE ACTIVITY TO INCLUDE WALKING ON A REGULAR BASIS. PROFESSIONAL NUTRITIONAL NUTRITIONAL GUIDANCE WAS OFFERED AND WAS DECLINED. , RISKS AND BENEFITS OF NARCOTIC/OPIOD MEDICATIONS WERE REVIEWED WITH PATIENT - THIS INCLUDES BUT IS NOT LIMITED TO RISK OF DEPENDANCE/DEVELOPMENT OF ADDICTION, MOOD DISTURBANCE AND DEPRESSION, OSTEOPOROSIS, HORMONAL AND LABIDAL CHANGES, RESPIRATORY DEPRESSION AND . PATIENT IS ADVISED NOT TO DRIVE WHILE ON THESE MEDICATIONS.URINE TOX TODAY. PROCEDURE CODES FA211 ESTABILISHED PATIENT [facility] FACILITY CHARGE G3051 BP SCR PRFRM RCMDD DEFIND SCR INTVL G8730 PAIN ASSESS POS TOOL F/U PLAN DOC 3016F PT SCRND UNHLTHY [place] USE 1123F ACP DISCUSS/DSCN MKR DOCD 0518F FALL PLAN OF CARE DOCD G8427 DOC MEDS VERIFIED W/PT OR RE G8417 BMI >=30 CALCUATE W/FOLLOWUP 3288F FALL RISK ASSESSMENT DOCD 4004F PT TOBACCO SCREEN RCVD TLK DISPOSITION & COMMUNICATION FOLLOW UP 2 MONTHS ELECTRONICALLY SIGNED BY DANNY LEE ON 03/17/2017 AT 05:07 PM EDT DISCLAIMER : THIS IS A VISIT SUMMARY EXTRACTED FROM THE [employer] CHART. IT IS NOT A COPY OF THE [employer] PROGRESS NOTE. MTDD
== END | disposition home or self-care (01) ==
LOC: M PAIN 14:20
PROVIDERS: ATTEND Nurse Practitioner Family
DX: G89.29 Other chronic pain (principal); M54.5 Low back pain; E11.9 Type 2 diabetes mellitus without complications; I48.91 Unspecified atrial fibrillation; Z86.73 Personal history of transient ischemic attack (TIA), and cerebral infarction without residual deficits; Z79.899 Other long term (current) drug therapy; Z79.84 Long term (current) use of oral hypoglycemic drugs; Z79.82 Long term (current) use of aspirin; Z79.01 Long term (current) use of anticoagulants; J30.89 Other allergic rhinitis; J30.81 Allergic rhinitis due to animal (cat) (dog) hair and dander

== ENCOUNTER → 2017-05-05 | Outpatient (CLI) | payer MEDICARE ==
[~2017-05-05] MED LIST changes: +ENDO10TA8 PO; -[UNRECOGNIZED DRUG - CODE] PO
--- NOTE | 2017-05-18 01:33 | ECWPNPC ---
PATIENT NAME: CHUYITA CHEN : 1940 GENDER: MALE VISIT DATE: 05/05/2017 DISCHARGE DATE: 05/05/17 1136 VISIT LOCKED DATE TIME: PHYSICIAN: DEV HERNANDEZ RESOURCE: DEV HERNANDEZ REASON FOR APPOINTMENT 1. FOLLOWUP HISTORY OF PRESENT ILLNESS HISTORY OF PRESENT ILLNESS: HERE FOR F/U.HAD RF L4/5-L5/S1 ON 01-11-17.RATING PAIN VAS 3/10.DESCRIBES PAIN CONSTANT SHARP PAIN LOCATED RIGHT LOW BACK.DESCRIBES PAIN SHARP AND STABBING.FINDS CURRENT CHRONIC PAIN MEDICINE IS EFFECTIVE AT REDUCING PAIN AND KEEPING HIM COMFORTABLE.DENIES SIDE EFFECTS. PAIN THE PATIENT DESCRIBES THE PAIN... THE PATIENT DESCRIBES THE PAIN... FALL RISK SCREENING: SCREENING :NO FALLS IN THE PAST YEAR CURRENT MEDICATIONS TAKING VENTOLIN HFA 1-2 PUFFS NEEDED INHALATION NEEDED TAKING ASPIRIN ADULT LOW STRENGTH 81 MG 1 TABLET ORALLY ONCE A DAY TAKING ENALAPRIL MALEATE 20 MG TABLET 1 TABLET ORALLY TWICE A DAY TAKING FINASTERIDE 5 MG TABLET 1 TABLET ORALLY ONCE A DAY TAKING FENOFIBRATE 43 MG TABLET 1 TABLET ORALLY ONCE A DAY TAKING METFORMIN HCL 1000 MG TABLET 1 TABLET WITH MEALS ORALLY TWICE A DAY TAKING METOPROLOL TARTRATE 25 MG TABLET 1 TABLET ORALLY TWICE A DAY TAKING MONTELUKAST SODIUM 10 MG TABLET ORALLY ONCE A DAY TAKING JANUVIA 50 MG TABLET 1 TABLET ORALLY ONCE A DAY TAKING VITAMIN D 2000 UNIT CAPSULE 2 ORALLY DAILY TAKING WARFARIN SODIUM 2 MG TABLET 1 TABLET ORALLY DAILY DIRECTED TAKING ATORVASTATIN CALCIUM 40 MG TABLET 1 TABLET ORALLY ONCE A DAY TAKING GLIPIZIDE 10 MG TABLET 1 TABLET ORALLY TWICE A DAY TAKING ALBUTEROL SULFATE (2.5 MG/3ML) 0.083% NEBULIZATION SOLUTION 3 ML INHALATION THREE TIMES A DAY NEEDED TAKING HYDROCHLOROTHIAZIDE 12.5 MG TABLET ORALLY DAILY TAKING TAMSULOSIN HCL 0.4 MG CAPSULE EXTENDED RELEASE ORALLY TAKING LIDOCAINE HCL 4 % CREAM SMALL AMOUNT TO LOW BACK EXTERNALLY THREE TIMES DAILY NEEDED TAKING GABAPENTIN 300 MG CAPSULE 1 CAPSULE ORALLY THREE TIMES A DAY TAKING ENDOCET 10-325 MG TABLET 1 ORALLY Q6-8H PRN MDD3 TRACEY TAKING NITROFURANTOIN MACROCRYSTAL 100 MG CAPSULE 1 CAPSULE WITH FOOD OR MILK ORALLY ONCE A DAY NOT-TAKING SODIUM POLYSTYRENE SULFONATE 15 GM/60ML SUSPENSION 15 ML COMBINATION ONCE A DAY NOT-TAKING FLOMAX 0.4 MG CAPSULE ORALLY ONCE A DAY, NOTES: 10/19/16 2300 NOT-TAKING VALIUM 10 MG TABLET 1 ORALLY 1 TAB 1HR PRE PROCEDURE MDD1, NOTES: 06/09/16 1130AM NOT-TAKING VALIUM 10 MG TABLET 1 ORALLY 1 TAB 1HR PRE PROC MDD1 MEDICATION LIST REVIEWED AND RECONCILED WITH THE PATIENT PAST MEDICAL HISTORY 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 CONSTITUTIONAL: ANY CHANGE IN YOUR MEDICAL CONDITION? NO . CHILLS NO . FEVER NO . INFECTION: DO YOU HAVE NEW INFECTIONS? YES BLADDER INFECTION, FUNGAL INFECTION GROIN . DO YOU HAVE HISTORY OF MRSA? NO . MUSCULOSKELETAL: ANY NEW PATTERNS OF PAIN OR NUMBNESS? NO . GASTROENTEROLOGY: ANY NEW CHANGE IN BOWEL CONTROL? NO . GENITOURINARY: ANY NEW CHANGE IN BLADDER CONTROL? NO . IS THERE A CHANCE YOU COULD BE ? NO . HEMATOLOGY/LYMPH: DO YOU TAKE ANY BLOOD THINNERS? (FOR EXAMPLE- COUMADIN, PLAVIX, AGGRENOX, PLATEL, PRADAXA, OR XARELTO) YES WARFARIN . WHEN WAS YOUR LAST DOSE? DATE: TIME: . NEUROLOGY: HAVE YOU FALLEN IN THE PAST 6 MONTHS? NO . ANY NEW EXTREMITY NUMBNESS OR WEAKNESS? NO . CARDIOLOGY: DO YOU HAVE A PACEMAKER OR DEFIBRILLATOR? NO . RESPIRATORY: HAVE YOU BEEN SICK IN THE PAST WEEK? NO . FEVER NO . FLU LIKE SYMPTOMS? NO . COUGH NO . INTEGUMENTARY: DO YOU HAVE ANY RASHES OR OPEN SORES? NO . ALLERGIC/IMMUNO: ARE YOU ALLERGIC TO SHELLFISH OR IV DYE? YES > 50 YEARS AGO . ANY NEW ALLERGIES? NO . PSYCHIATRIC: DO YOU HAVE THOUGHTS OF HURTING YOURSELF OR SOMEONE ELSE? NO . ARE YOU ABUSED, NEGLECTED, OR IN AN UNSAFE ENVIRONMENT? NO . ENDOCRINOLOGY: ARE YOU DIABETIC? NO . OTHER: DO YOU NEED ANY PRESCRIPTIONS? NO . IF YES, PLEASE LIST: ____ . ANY NEW PROBLEMS WITH YOUR MEDICATIONS? NO . WHEN DID YOU LAST EAT? ____ . WHEN DID YOU LAST DRINK? ____ . WHAT DID YOU LAST DRINK? ____ . NAME OF PERSON DRIVING YOU HOME? ____ . DO YOU HAVE ANY OTHER QUESTIONS OR CONCERNS NO . VITAL SIGNS WT 212 LBS, HT 71 IN, BMI 29.56 INDEX, BP 120/65 MM HG, HR 69 /MIN, RR 18 /MIN, TEMP 97.6 F, OXYGEN SAT % 91%, SAFE IN ENV? (Y/N) YES, REVIEWED BY: BEBETO. EXAMINATION GENERAL EXAMINATION: LUNGS:LUNG SOUNDS ARE CLEAR. HEART:HEART RATE REGULAR. MUSCULOSKELETAL:*, PERILUMBAR TENDERNESS R>L. MUSCLE STRENGTH TESTING 3/5 RIGHT AND 5/5 LEFT . DIAGNOSTIC: . ASSESSMENTS LOW BACK PAIN OF OVER 3 MONTHS DURATION - M54.5 (PRIMARY) CHRONIC PRESCRIPTION OPIATE USE - Z79.891 TREATMENT LOW BACK PAIN OF OVER 3 MONTHS DURATION CONTINUE GABAPENTIN CAPSULE, 300 MG, 1 CAPSULE, ORALLY, THREE TIMES A DAY REFILL ENDOCET TABLET, 10-325 MG, 1, ORALLY, Q6-8H PRN MDD3 TRACEY, 30 DAY(S), 90, REFILLS 0 PROCEDURE CODES FA211 ESTABILISHED PATIENT [facility] FACILITY CHARGE G8730 PAIN ASSESS POS TOOL F/U PLAN DOC G8427 DOC MEDS VERIFIED W/PT OR RE DISPOSITION & COMMUNICATION FOLLOW UP 2 MONTHS ELECTRONICALLY SIGNED BY DANNY LEE ON 05/17/2017 AT 04:28 PM EDT DISCLAIMER : THIS IS A VISIT SUMMARY EXTRACTED FROM THE [employer] CHART. IT IS NOT A COPY OF THE [employer] PROGRESS NOTE. RAMANDEEP
== END ==
LOC: M PAIN 10:40
PROVIDERS: ATTEND Nurse Practitioner Family
DX: G89.29 Other chronic pain (principal); M54.5 Low back pain; N40.0 Benign prostatic hyperplasia without lower urinary tract symptoms; I48.91 Unspecified atrial fibrillation; E11.9 Type 2 diabetes mellitus without complications; I25.2 Old myocardial infarction; Z79.01 Long term (current) use of anticoagulants; Z79.891 Long term (current) use of opiate analgesic; Z79.84 Long term (current) use of oral hypoglycemic drugs; Z79.899 Other long term (current) drug therapy

== ENCOUNTER → 2017-07-07 | Outpatient (CLI) | payer MEDICARE ==
--- NOTE | 2017-07-08 01:23 | ECWPNPC ---
PATIENT NAME: CHUYITA CHEN : 1940 GENDER: MALE VISIT DATE: 07/07/2017 DISCHARGE DATE: 07/07/17 1225 VISIT LOCKED DATE TIME: PHYSICIAN: DEV HERNANDEZ RESOURCE: DEV HERNANDEZ REASON FOR APPOINTMENT 1. BACK HISTORY OF PRESENT ILLNESS HISTORY OF PRESENT ILLNESS: HERE FOR F/U AND MANAGEMENT OF CHRONIC LOW BACK PAIN AND RIGHT LEG RADICULOPATHY.HAS BEEN DOING WELL AFTER RF DONE IN DECEMBER.REPORTS SIGNIFICANT INCREASE IN RIGHT LOW BACK PAIN OVER THE PAST TWO WEEKS.STATES HE HAS BEEN DOING ALOT AROUND THE YARD.HE IS WALKING WITH HIS CRUTCHES TODAY.USING ENDOCET 10/325 Q6-8H PRN FOR SEVERE PAIN EPISODES AND STATES IT IS SOMEWHAT HELPFUL.DESCRIBES PAIN CONSTANT AND SHARP.DESCRIBES MUSCLE SPASM TYPE PAIN.RATING PAIN VAS 6/10.ALSO TAKING GABAPENTIN. PAIN THE PATIENT DESCRIBES THE PAIN... FALL RISK SCREENING: SCREENING :NO FALLS IN THE PAST YEAR CURRENT MEDICATIONS TAKING VENTOLIN HFA 1-2 PUFFS NEEDED INHALATION NEEDED TAKING ASPIRIN ADULT LOW STRENGTH 81 MG 1 TABLET ORALLY ONCE A DAY TAKING ENALAPRIL MALEATE 20 MG TABLET 1 TABLET ORALLY TWICE A DAY TAKING FINASTERIDE 5 MG TABLET 1 TABLET ORALLY ONCE A DAY TAKING FENOFIBRATE 43 MG TABLET 1 TABLET ORALLY ONCE A DAY TAKING METFORMIN HCL 1000 MG TABLET 1 TABLET WITH MEALS ORALLY TWICE A DAY TAKING METOPROLOL TARTRATE 25 MG TABLET 1 TABLET ORALLY TWICE A DAY TAKING MONTELUKAST SODIUM 10 MG TABLET ORALLY ONCE A DAY TAKING JANUVIA 50 MG TABLET 1 TABLET ORALLY ONCE A DAY TAKING VITAMIN D 2000 UNIT CAPSULE 2 ORALLY DAILY TAKING WARFARIN SODIUM 2 MG TABLET 1 TABLET ORALLY DAILY DIRECTED TAKING ATORVASTATIN CALCIUM 40 MG TABLET 1 TABLET ORALLY ONCE A DAY TAKING GLIPIZIDE 10 MG TABLET 1 TABLET ORALLY TWICE A DAY TAKING ALBUTEROL SULFATE (2.5 MG/3ML) 0.083% NEBULIZATION SOLUTION 3 ML INHALATION THREE TIMES A DAY NEEDED TAKING HYDROCHLOROTHIAZIDE 12.5 MG TABLET ORALLY DAILY TAKING TAMSULOSIN HCL 0.4 MG CAPSULE EXTENDED RELEASE ORALLY DAILY TAKING LIDOCAINE HCL 4 % CREAM SMALL AMOUNT TO LOW BACK EXTERNALLY THREE TIMES DAILY NEEDED TAKING NITROFURANTOIN MACROCRYSTAL 100 MG CAPSULE 1 CAPSULE WITH FOOD OR MILK ORALLY ONCE A DAY TAKING GABAPENTIN 300 MG CAPSULE 1 CAPSULE ORALLY THREE TIMES A DAY TAKING ENDOCET 10-325 MG TABLET 1 ORALLY Q6-8H PRN MDD3 TRACEY NOT-TAKING SODIUM POLYSTYRENE SULFONATE 15 GM/60ML SUSPENSION 15 ML COMBINATION ONCE A DAY NOT-TAKING FLOMAX 0.4 MG CAPSULE ORALLY ONCE A DAY, NOTES: 10/19/16 2300 NOT-TAKING VALIUM 10 MG TABLET 1 ORALLY 1 TAB 1HR PRE PROCEDURE MDD1, NOTES: 06/09/16 1130AM NOT-TAKING VALIUM 10 MG TABLET 1 ORALLY 1 TAB 1HR PRE PROC MDD1 MEDICATION LIST REVIEWED AND RECONCILED WITH THE PATIENT PAST MEDICAL HISTORY 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 DIABETES ALLERGIES ENVIRONMENTAL CATS DOGS AMPICILLIN: HIVES: ALLERGY SOCIAL HISTORY GENERAL: TOBACCO USE ARE YOU A:CURRENT SMOKER PATIENT COUNSELED ON THE DANGERS OF TOBACCO USE AND URGED TO QUIT:07/07/2017 ARE YOU INTERESTED IN QUITTING?NOT READY TO QUIT COUNSELED THE PATIENT ON SMOKING EFFECTS, EDUCATION [id number]/06/2017 [employer] [id number] 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 SPOKEN:SYRIAC LEARNING BARRIERS / SPECIAL NEEDS CHANGE FROM LAST VISIT?NO BARRIERS TO LEARNING?NO HEARING IMPAIRED?YES VISION IMPAIRED?YES :CORRECTIVE LENSES COGNITIVELY IMPAIRED?NO READINESS TO LEARN?YES LEARNING PREFERENCES?NO LEARNING CAPABILITIES PRESENT?YES EMOTIONAL BARRIERS?NO SPECIAL DEVICES?YES USES CRUTCHES ALSO :CANE 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 REVIEW OF SYSTEMS REVIEWED BY: PROVIDER: DEV DELGADO . CONSTITUTIONAL: ANY CHANGE IN YOUR MEDICAL CONDITION? NO . CHILLS NO . FEVER NO . INFECTION: DO YOU HAVE NEW INFECTIONS? NO . DO YOU HAVE HISTORY OF MRSA? NO . MUSCULOSKELETAL: ANY NEW PATTERNS OF PAIN OR NUMBNESS? NO . GASTROENTEROLOGY: ANY NEW CHANGE IN BOWEL CONTROL? NO . GENITOURINARY: ANY NEW CHANGE IN BLADDER CONTROL? NO . IS THERE A CHANCE YOU COULD BE ? NO . HEMATOLOGY/LYMPH: DO YOU TAKE ANY BLOOD THINNERS? (FOR EXAMPLE- COUMADIN, PLAVIX, AGGRENOX, PLATEL, PRADAXA, OR XARELTO) YES, COUMADIN . WHEN WAS YOUR LAST DOSE? DATE:07/06/17 TIME: 2300 . NEUROLOGY: HAVE YOU FALLEN IN THE PAST 6 MONTHS? NO . ANY NEW EXTREMITY NUMBNESS OR WEAKNESS? NO . CARDIOLOGY: DO YOU HAVE A PACEMAKER OR DEFIBRILLATOR? NO . RESPIRATORY: HAVE YOU BEEN SICK IN THE PAST WEEK? NO . FEVER NO . FLU LIKE SYMPTOMS? NO . COUGH NO . INTEGUMENTARY: DO YOU HAVE ANY RASHES OR OPEN SORES? NO . ALLERGIC/IMMUNO: ARE YOU ALLERGIC TO SHELLFISH OR IV DYE? NO . ANY NEW ALLERGIES? NO . PSYCHIATRIC: DO YOU HAVE THOUGHTS OF HURTING YOURSELF OR SOMEONE ELSE? NO . ARE YOU ABUSED, NEGLECTED, OR IN AN UNSAFE ENVIRONMENT? NO . ENDOCRINOLOGY: ARE YOU DIABETIC? YES . OTHER: DO YOU NEED ANY PRESCRIPTIONS? YES . IF YES, PLEASE LIST: ENDOCET AND GABAPENTIN . ANY NEW PROBLEMS WITH YOUR MEDICATIONS? NO . WHEN DID YOU LAST EAT? ____ . WHEN DID YOU LAST DRINK? ____ . WHAT DID YOU LAST DRINK? ____ . NAME OF PERSON DRIVING YOU HOME? ____ . DO YOU HAVE ANY OTHER QUESTIONS OR CONCERNS NO . VITAL SIGNS WT 218 LBS, HT 71 IN, BMI 30.40 INDEX, BP 103/62 MM HG, HR 72 /MIN, RR 18 /MIN, TEMP 96.8 F, OXYGEN SAT % 93%, NA INITIALS SC 11:16, REVIEWED BY: ANAND. EXAMINATION GENERAL EXAMINATION: LUNGS:LUNG SOUNDS ARE CLEAR. HEART:HEART RATE REGULAR. MUSCULOSKELETAL:TRIGGER POINTS:, ELICITED WITH PALPATION OVER RIGHT LUMBAR PARAVERTEBRAL. RESTRICTION OF ROM IN THIS AREA. DIAGNOSTIC: . 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 PREVENTIVE MEDICINE PAIN CLINIC TEACHING: MEDICATIONS ROBAXIN TEACHING DONE. ADDITIONAL INFORMATION GIVEN. PATIENT VERBALIZES UNDERSTANDING.. PROCEDURE TEACHING PRE-PROCEDURE TEACHING DONE. QUESTIONS ANSWERED AND PATIENT VERBALIZES UNDERSTANDING.. PROCEDURE CODES FA211 ESTABILISHED PATIENT [facility] CHARGE G8730 PAIN ASSESS POS TOOL F/U PLAN DOC G8427 DOC MEDS VERIFIED W/PT OR RE DISPOSITION & COMMUNICATION FOLLOW UP TPI RIGHT LUMBAR PARASPINAL-2WK POST (REASON: TPI RIGHT LUMBAR PARASPINAL) ELECTRONICALLY SIGNED BY DANNY LEE ON 07/07/2017 AT 03:04 PM EDT DISCLAIMER : THIS IS A VISIT SUMMARY EXTRACTED FROM THE [employer] CHART. IT IS NOT A COPY OF THE [employer] PROGRESS NOTE. RAMANDEEP
== END ==
LOC: M PAIN 11:00
PROVIDERS: ATTEND Nurse Practitioner Family
DX: G89.29 Other chronic pain (principal); M54.5 Low back pain; Z79.891 Long term (current) use of opiate analgesic; M79.1 Myalgia; M96.1 Postlaminectomy syndrome, not elsewhere classified; I25.2 Old myocardial infarction; I48.91 Unspecified atrial fibrillation; E11.9 Type 2 diabetes mellitus without complications; N40.0 Benign prostatic hyperplasia without lower urinary tract symptoms; Z79.01 Long term (current) use of anticoagulants; Z79.84 Long term (current) use of oral hypoglycemic drugs; Z79.899 Other long term (current) drug therapy; F17.210 Nicotine dependence, cigarettes, uncomplicated; Z88.1 Allergy status to other antibiotic agents; J30.81 Allergic rhinitis due to animal (cat) (dog) hair and dander; J30.89 Other allergic rhinitis

== ENCOUNTER → 2017-07-21 | Outpatient (CLI) | payer MEDICARE ==
[~2017-07-21] MED LIST changes: +BUPIVACAINE HCL 0.25% 10 ML VIAL As Ordered ONE; +BUPIVACAINE HCL 0.25% 30 ML VIAL As Ordered ONE; +TRIAMCINOLONE ACETONIDE SUSP 40 MG/ML VIAL (J3301) As Ordered ONE; +diazePAM 5 MG TAB As Ordered ONE; +oxyCODONE 5MG TAB As Ordered ONE
--- NOTE | 2017-07-22 00:04 | ECWPNPC ---
PATIENT NAME: CHUYITA CHEN : 1940 GENDER: MALE VISIT DATE: 07/21/2017 DISCHARGE DATE: 07/21/17 1247 VISIT LOCKED DATE TIME: PHYSICIAN: ARMANI ROSA RESOURCE: ARMANI ROSA REASON FOR APPOINTMENT 1. TPI, LOW BACK HISTORY OF PRESENT ILLNESS HISTORY OF PRESENT ILLNESS: PAIN THE PATIENT DESCRIBES THE PAIN... FALL RISK SCREENING: SCREENING :NO FALLS IN THE PAST YEAR CURRENT MEDICATIONS TAKING VENTOLIN HFA 1-2 PUFFS NEEDED INHALATION NEEDED, NOTES: 0600 TAKING ASPIRIN ADULT LOW STRENGTH 81 MG 1 TABLET ORALLY ONCE A DAY, NOTES: 0700 TAKING ENALAPRIL MALEATE 20 MG TABLET 1 TABLET ORALLY TWICE A DAY, NOTES: 0700 TAKING FINASTERIDE 5 MG TABLET 1 TABLET ORALLY ONCE A DAY, NOTES: 07/20/17@2300 TAKING FENOFIBRATE 43 MG TABLET 1 TABLET ORALLY ONCE A DAY, NOTES: 2300 TAKING METFORMIN HCL 1000 MG TABLET 1 TABLET WITH MEALS ORALLY TWICE A DAY, NOTES: 07/20/17@1700 TAKING METOPROLOL TARTRATE 25 MG TABLET 1 TABLET ORALLY TWICE A DAY, NOTES: 0700 TAKING MONTELUKAST SODIUM 10 MG TABLET ORALLY ONCE A DAY, NOTES: 07/20/17@2300 TAKING JANUVIA 50 MG TABLET 1 TABLET ORALLY ONCE A DAY, NOTES: 07/20/17@230 TAKING VITAMIN D 2000 UNIT CAPSULE 2 ORALLY DAILY, NOTES: 0700 TAKING WARFARIN SODIUM 2 MG TABLET 1 TABLET ORALLY DAILY DIRECTED, NOTES: 07/20/17@2300 TAKING ATORVASTATIN CALCIUM 40 MG TABLET 1 TABLET ORALLY ONCE A DAY, NOTES: 07/20/17@2299 TAKING GLIPIZIDE 10 MG TABLET 1 TABLET ORALLY TWICE A DAY, NOTES: 07/20/17@1700 TAKING ALBUTEROL SULFATE (2.5 MG/3ML) 0.083% NEBULIZATION SOLUTION 3 ML INHALATION THREE TIMES A DAY NEEDED, NOTES: 0400 TAKING HYDROCHLOROTHIAZIDE 12.5 MG TABLET ORALLY DAILY, NOTES: 0700 TAKING TAMSULOSIN HCL 0.4 MG CAPSULE EXTENDED RELEASE ORALLY DAILY, NOTES: 07/20/17@2300 TAKING GABAPENTIN 300 MG CAPSULE 1 CAPSULE ORALLY THREE TIMES A DAY, NOTES: 07/20/17@2300 TAKING ENDOCET 10-325 MG TABLET 1 ORALLY Q6-8H PRN MDD3 TRACEY, NOTES: 07/20/17@2300 TAKING ROBAXIN-750 750 MG TABLET 1 TABLET ORALLY Q8H PRN, NOTES: 07/20/17@1700 NOT-TAKING SODIUM POLYSTYRENE SULFONATE 15 GM/60ML SUSPENSION 15 ML COMBINATION ONCE A DAY NOT-TAKING FLOMAX 0.4 MG CAPSULE ORALLY ONCE A DAY, NOTES: 10/19/16 2300 NOT-TAKING VALIUM 10 MG TABLET 1 ORALLY 1 TAB 1HR PRE PROCEDURE MDD1, NOTES: 06/09/16 1130AM NOT-TAKING VALIUM 10 MG TABLET 1 ORALLY 1 TAB 1HR PRE PROC MDD1 DISCONTINUED LIDOCAINE HCL 4 % CREAM SMALL AMOUNT TO LOW BACK EXTERNALLY THREE TIMES DAILY NEEDED DISCONTINUED NITROFURANTOIN MACROCRYSTAL 100 MG CAPSULE 1 CAPSULE WITH FOOD OR MILK ORALLY ONCE A DAY MEDICATION LIST REVIEWED AND RECONCILED WITH THE PATIENT PAST MEDICAL HISTORY 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 DIABETES ALLERGIES ENVIRONMENTAL CATS DOGS AMPICILLIN: HIVES: ALLERGY SOCIAL HISTORY GENERAL: TOBACCO USE ARE YOU A:CURRENT SMOKER PATIENT COUNSELED ON THE DANGERS OF TOBACCO USE AND URGED TO QUIT:07/07/2017 ARE YOU INTERESTED IN QUITTING?NOT READY TO QUIT COUNSELED THE PATIENT ON SMOKING EFFECTS, EDUCATION [id number]/06/2017 TAOIST [id number] RELIGION LANGUAGE LANGUAGES SPOKEN:[place] LEARNING BARRIERS / SPECIAL NEEDS CHANGE FROM LAST VISIT?NO BARRIERS TO LEARNING?NO HEARING IMPAIRED?YES VISION IMPAIRED?YES :CORRECTIVE LENSES COGNITIVELY IMPAIRED?NO READINESS TO LEARN?YES LEARNING PREFERENCES?NO LEARNING CAPABILITIES PRESENT?YES EMOTIONAL BARRIERS?NO SPECIAL DEVICES?YES USES CRUTCHES ALSO :CANE GRAPHICS COORDINATOR NEEDED?NO PAIN CLINIC PFS, CLERGY, PUBLIC HEALTH REFERRALS PFS REFERRAL NEEDED?NO CLERGY REFERRAL NEEDED?NO PUBLIC HEALTH REFERRAL NEEDED?NO WAS THE PROVIDER NOTIFIED OF ANY PERTINENT INFO?NO HAS THE PATIENT BEEN EDUCATED REGARDING HIS/HER PLAN OF CARE?YES HAS THE PATIENT BEEN EDUCATED REGARDING PAIN, THE RISK FOR PAIN, THE IMPORTANCE OF EFFECTIVE PAIN MANAGEMENT, AND THE PAIN ASSESSMENT PROCESS?YES PATIENT: ____. REVIEW OF SYSTEMS REVIEWED BY: PROVIDER: . CONSTITUTIONAL: ANY CHANGE IN YOUR MEDICAL CONDITION? NO . CHILLS NO . FEVER NO . INFECTION: DO YOU HAVE NEW INFECTIONS? NO . DO YOU HAVE HISTORY OF MRSA? NO . MUSCULOSKELETAL: ANY NEW PATTERNS OF PAIN OR NUMBNESS? NO . GASTROENTEROLOGY: ANY NEW CHANGE IN BOWEL CONTROL? NO . GENITOURINARY: ANY NEW CHANGE IN BLADDER CONTROL? NO . IS THERE A CHANCE YOU COULD BE ? NO . HEMATOLOGY/LYMPH: DO YOU TAKE ANY BLOOD THINNERS? (FOR EXAMPLE- COUMADIN, PLAVIX, AGGRENOX, PLATEL, PRADAXA, OR XARELTO) NO . WHEN WAS YOUR LAST DOSE? DATE: TIME: 07/20/17@2300 . NEUROLOGY: HAVE YOU FALLEN IN THE PAST 6 MONTHS? NO . ANY NEW EXTREMITY NUMBNESS OR WEAKNESS? NO . CARDIOLOGY: DO YOU HAVE A PACEMAKER OR DEFIBRILLATOR? NO . RESPIRATORY: HAVE YOU BEEN SICK IN THE PAST WEEK? NO . FEVER NO . FLU LIKE SYMPTOMS? NO . COUGH NO . INTEGUMENTARY: DO YOU HAVE ANY RASHES OR OPEN SORES? NO . ALLERGIC/IMMUNO: ARE YOU ALLERGIC TO SHELLFISH OR IV DYE? NO . ANY NEW ALLERGIES? NO . PSYCHIATRIC: DO YOU HAVE THOUGHTS OF HURTING YOURSELF OR SOMEONE ELSE? NO . ARE YOU ABUSED, NEGLECTED, OR IN AN UNSAFE ENVIRONMENT? NO . ENDOCRINOLOGY: ARE YOU DIABETIC? YES . OTHER: DO YOU NEED ANY PRESCRIPTIONS? NO . IF YES, PLEASE LIST: ____ . ANY NEW PROBLEMS WITH YOUR MEDICATIONS? NO . WHEN DID YOU LAST EAT? ____07/20/17 . WHEN DID YOU LAST DRINK? ____07/21/17@0700 . WHAT DID YOU LAST DRINK? ____WATER . NAME OF PERSON DRIVING YOU HOME? ____BARBARA . DO YOU HAVE ANY OTHER QUESTIONS OR CONCERNS NO . VITAL SIGNS WT 214.5 LBS, HT 71 IN, BMI 29.91 INDEX, BP 131/71 MM HG, HR 68 /MIN, RR 18 /MIN, TEMP 97.2 F, OXYGEN SAT % 97%, NA INITIALS SC 10:57. ASSESSMENTS MYALGIA - M79.1 (PRIMARY) PROCEDURES PN TRIGGER POINT INJECTION WITH STEROIDS PRE PROCEDURE DIAGNOSIS 1. MYALGIA 2. PAIN AT RIGHT LOWER BACK AREA POST PROCEDURE DIAGNOSIS 1. MYALGIA 2. PAIN AT RIGHT LOWER BACK AREA PROCEDURE TRIGGER POINT INJECTION AT RIGHT LOWER BACK AREA SURGEON DR. ARMANI ROSA PLUMBING WAREHOUSE HELPER NONE ANESTHESIA LOCAL PRE PROCEDURE NOTE THE PATIENT HAS A HISTORY OF CHRONIC PAIN AT THE RIGHT LOWER BACK AREA. I EVALUATE THE PATIENT AND REVIEWED THE CHART. THERE IS EVIDENCE OF BANDS OF TISSUE WITH RESTRICTION OF MOVEMENT AND PRESENCE OF TRIGGER POINT AT THE AFFECTED AREA. I WENT OVER THE RISKS, ALTERNATIVES, AND BENEFITS ASSOCIATED WITH THIS PROCEDURE. THE PATIENT WOULD LIKE TO PROCEED AND GIVE CONSENT TO PERFORMED THE PROCEDURE. THE PATIENT DENIES UNEXPLAINABLE WEIGHT LOSS, FEVER, CHILLS, OR NEW CHANGES IN URINARY OR BOWEL CONTROL DESCRIPTION OF PROCEDURE THE PATIENT WAS BROUGHT TO THE PROCEDURE ROOM AND PLACED IN THE SITTING POSITION. THE AREA WAS CLEANED WITH ALCOHOL. THE PROCEDURE WAS DONE USING ASEPTIC STERILE TECHNIQUE. I CHECKED LATERALITY AND THE LEVEL WHERE THE PROCEDURE WAS GOING TO BE PERFORMED WITH THE PATIENT AND THE SUPPORTING STAFF AT THE MOMENT OF THE TIME OUT IN THE PROCEDURE ROOM. USING A 25-GAUGE NEEDLE, TRIGGER POINTS WERE INJECTED AT THE RIGHT LOWER BACK AREA WITH A TOTAL OF 40 ML OF BUPIVACAINE 0.25% AND KENALOG 40 MG. THERE WAS NO EVIDENCE OF BLOOD, PARESTHESIA OR CEREBROSPINAL FLUID DURING THE PROCEDURE. THE PATIENT WAS SENT TO THE RECOVERY ROOM. THE PATIENT WAS MOVING THE EXTREMITIES AND DOING WELL. THERE WAS NO COMPLICATION DURING THE PROCEDURE POST PROCEDURE NOTE THE PATIENT WILL BE SEEN IN A FOLLOW UP IN THE NEXT FEW WEEKS. INSTRUCTIONS WERE GIVEN, QUESTIONS WERE ANSWERED, AND THE PATIENT EXPRESSED UNDERSTANDING AND AGREES WITH THE PLAN. PROCEDURE CODES 24809 INJ TRIGGER POINT 1/2 MUSCL DISPOSITION & COMMUNICATION FOLLOW UP 3 WEEKS ELECTRONICALLY SIGNED BY ARMANI ROSA MD ON 07/21/2017 AT 09:22 PM EDT DISCLAIMER : THIS IS A VISIT SUMMARY EXTRACTED FROM THE [employer] CHART. IT IS NOT A COPY OF THE [employer] PROGRESS NOTE. [email or web address]
== END ==
LOC: M PAIN 10:30
PROVIDERS: ATTEND Anesthesiology
DX: G89.29 Other chronic pain (principal); M79.1 Myalgia; N40.0 Benign prostatic hyperplasia without lower urinary tract symptoms; I48.91 Unspecified atrial fibrillation; E11.9 Type 2 diabetes mellitus without complications; F17.210 Nicotine dependence, cigarettes, uncomplicated; Z79.82 Long term (current) use of aspirin; Z79.84 Long term (current) use of oral hypoglycemic drugs; Z79.01 Long term (current) use of anticoagulants; Z79.899 Other long term (current) drug therapy; Z88.0 Allergy status to penicillin
CPT/HCPCS: 20552; J3301

== ENCOUNTER → 2017-08-06 | Outpatient (CLI) | payer MEDICARE ==
[~2017-08-06] MED LIST changes: -BUPIVACAINE HCL 0.25% 10 ML VIAL As Ordered ONE; -BUPIVACAINE HCL 0.25% 30 ML VIAL As Ordered ONE; -TRIAMCINOLONE ACETONIDE SUSP 40 MG/ML VIAL (J3301) As Ordered ONE; -diazePAM 5 MG TAB As Ordered ONE; -oxyCODONE 5MG TAB As Ordered ONE
--- NOTE | 2017-08-25 01:38 | ECWPNPC ---
PATIENT NAME: CHUYITA CHEN : 1940 GENDER: MALE VISIT DATE: 08/06/2017 DISCHARGE DATE: 08/06/17 1115 VISIT LOCKED DATE TIME: PHYSICIAN: DEV HERNANDEZ RESOURCE: DEV HERNANDEZ REASON FOR APPOINTMENT 1. POST PROC HISTORY OF PRESENT ILLNESS HISTORY OF PRESENT ILLNESS: HERE FOR POST PROCEDURE F/U.HAD TPI ON 07-22-17.HAD A FEW DAYS OF SIGNIFICANT IMPROVEMENT THEN HAD SEVERE LOW BACK PAIN AND HE PASSED A KIDNEY STONE.TODAY MUCH BETTER 3.5/10 VAS.DOES REPORT THAT ENDOCET 10/325 IS HELPFUL.ALSO TAKING GABAPENTIN 300MG TID. PAIN THE PATIENT DESCRIBES THE PAIN... FALL RISK SCREENING: SCREENING :NO FALLS IN THE PAST YEAR CURRENT MEDICATIONS TAKING VENTOLIN HFA 1-2 PUFFS NEEDED INHALATION NEEDED TAKING ASPIRIN ADULT LOW STRENGTH 81 MG 1 TABLET ORALLY ONCE A DAY TAKING ENALAPRIL MALEATE 20 MG TABLET 1 TABLET ORALLY TWICE A DAY TAKING FINASTERIDE 5 MG TABLET 1 TABLET ORALLY ONCE A DAY TAKING FENOFIBRATE 43 MG TABLET 1 TABLET ORALLY ONCE A DAY TAKING METFORMIN HCL 1000 MG TABLET 1 TABLET WITH MEALS ORALLY TWICE A DAY TAKING METOPROLOL TARTRATE 25 MG TABLET 1 TABLET ORALLY TWICE A DAY TAKING MONTELUKAST SODIUM 10 MG TABLET ORALLY ONCE A DAY TAKING JANUVIA 50 MG TABLET 1 TABLET ORALLY ONCE A DAY TAKING VITAMIN D 2000 UNIT CAPSULE 2 ORALLY DAILY TAKING WARFARIN SODIUM 2 MG TABLET 1 TABLET ORALLY DAILY DIRECTED TAKING ATORVASTATIN CALCIUM 40 MG TABLET 1 TABLET ORALLY ONCE A DAY TAKING GLIPIZIDE 10 MG TABLET 1 TABLET ORALLY TWICE A DAY TAKING ALBUTEROL SULFATE (2.5 MG/3ML) 0.083% NEBULIZATION SOLUTION 3 ML INHALATION THREE TIMES A DAY NEEDED TAKING HYDROCHLOROTHIAZIDE 12.5 MG TABLET ORALLY DAILY, NOTES: ON HOLD TAKING TAMSULOSIN HCL 0.4 MG CAPSULE EXTENDED RELEASE ORALLY DAILY TAKING GABAPENTIN 300 MG CAPSULE 1 CAPSULE ORALLY THREE TIMES A DAY TAKING ENDOCET 10-325 MG TABLET 1 ORALLY Q6-8H PRN MDD3 TRACEY NOT-TAKING ROBAXIN-750 750 MG TABLET 1 TABLET ORALLY Q8H PRN, NOTES: ONLY 7 DAY SUPPLY NOT-TAKING SODIUM POLYSTYRENE SULFONATE 15 GM/60ML SUSPENSION 15 ML COMBINATION ONCE A DAY DISCONTINUED FLOMAX 0.4 MG CAPSULE ORALLY ONCE A DAY DISCONTINUED VALIUM 10 MG TABLET 1 ORALLY 1 TAB 1HR PRE PROCEDURE MDD1 DISCONTINUED VALIUM 10 MG TABLET 1 ORALLY 1 TAB 1HR PRE PROC MDD1 MEDICATION LIST REVIEWED AND RECONCILED WITH THE PATIENT PAST MEDICAL HISTORY 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 STATES HE IS NOT INHALING PREVIOUS QUIT ATTEMPTS?NO. COUNSELED THE PATIENT ON TOBACCO USE, CESSATION [id number]/06/2017 HOW MANY CIGARETTES A DAY DO YOU SMOKE?5 OR LESS HOW SOON AFTER YOU WAKE UP DO YOU SMOKE YOUR FIRST CIGARETTE?AFTER 60 MIN HOW OFTEN DO YOU SMOKE CIGARETTES?SOME DAYS, BUT NOT EVERY DAY PATIENT COUNSELED ON THE DANGERS OF TOBACCO USE AND URGED TO QUIT:08/06/2017 ALCOHOL SCREENING POINTS0 INTERPRETATIONNEGATIVE RECREATIONAL DRUG USE DRUG USE?NO CAFFEINE CAFFEINE USE?NO DIET: REGULAR. EXERCISE: WALKS. SIKH [id number] ZOROASTRIANISM LANGUAGE LANGUAGES SPOKEN:[place] LEARNING BARRIERS / SPECIAL NEEDS CHANGE FROM LAST VISIT?NO BARRIERS TO LEARNING?NO HEARING IMPAIRED?YES VISION IMPAIRED?YES :CORRECTIVE LENSES COGNITIVELY IMPAIRED?NO READINESS TO LEARN?YES LEARNING PREFERENCES?NO LEARNING CAPABILITIES PRESENT?YES EMOTIONAL BARRIERS?NO SPECIAL DEVICES?YES USES CRUTCHES ALSO :CANE REGULATORY AFFAIRS ANALYST NEEDED?NO PAIN CLINIC PFS, CLERGY, PUBLIC HEALTH REFERRALS PFS REFERRAL NEEDED?NO CLERGY REFERRAL NEEDED?NO PUBLIC HEALTH REFERRAL NEEDED?NO WAS THE PROVIDER NOTIFIED OF ANY PERTINENT INFO?NO HAS THE PATIENT BEEN EDUCATED REGARDING HIS/HER PLAN OF CARE?YES HAS THE PATIENT BEEN EDUCATED REGARDING PAIN, THE RISK FOR PAIN, THE IMPORTANCE OF EFFECTIVE PAIN MANAGEMENT, AND THE PAIN ASSESSMENT PROCESS?YES PATIENT: ____. ADVANCE DIRECTIVES HEALTH CARE PROXY?NO WOULD YOU LIKE MORE INFORMATION?NO STATES HE ALREADY HAS INFORMATION DO YOU HAVE A DNR?NO WOULD YOU LIKE MORE INFORMATION?NO LIVING WILL?NO WOULD YOU LIKE MORE INFORMATION?NO POWER OF STEEL DIE PRESS SET UP OPERATOR?NO WOULD YOU LIKE MORE INFORMATION?NO DOMESTIC VIOLENCE DO YOU FEEL SAFE IN YOUR ENVIRONMENT?YES 08/06/17 1044 REVIEWED BY AD. REVIEW OF SYSTEMS REVIEWED BY: PROVIDER: DEV DELGADO . CONSTITUTIONAL: ANY CHANGE IN YOUR MEDICAL CONDITION? NO . CHILLS NO . FEVER NO . INFECTION: DO YOU HAVE NEW INFECTIONS? NO . DO YOU HAVE HISTORY OF MRSA? NO . MUSCULOSKELETAL: ANY NEW PATTERNS OF PAIN OR NUMBNESS? NO . GASTROENTEROLOGY: ANY NEW CHANGE IN BOWEL CONTROL? NO . GENITOURINARY: ANY NEW CHANGE IN BLADDER CONTROL? NO . IS THERE A CHANCE YOU COULD BE ? NO . HEMATOLOGY/LYMPH: DO YOU TAKE ANY BLOOD THINNERS? (FOR EXAMPLE- COUMADIN, PLAVIX, AGGRENOX, PLATEL, PRADAXA, OR XARELTO) YES, COUMADIN . WHEN WAS YOUR LAST DOSE? DATE: TIME: 08/05/17 2300 . NEUROLOGY: HAVE YOU FALLEN IN THE PAST 6 MONTHS? NO . ANY NEW EXTREMITY NUMBNESS OR WEAKNESS? NO . CARDIOLOGY: DO YOU HAVE A PACEMAKER OR DEFIBRILLATOR? NO . RESPIRATORY: HAVE YOU BEEN SICK IN THE PAST WEEK? NO . FEVER NO . FLU LIKE SYMPTOMS? NO . COUGH NO . INTEGUMENTARY: DO YOU HAVE ANY RASHES OR OPEN SORES? NO . ALLERGIC/IMMUNO: ARE YOU ALLERGIC TO SHELLFISH OR IV DYE? NO . ANY NEW ALLERGIES? NO . PSYCHIATRIC: DO YOU HAVE THOUGHTS OF HURTING YOURSELF OR SOMEONE ELSE? NO . ARE YOU ABUSED, NEGLECTED, OR IN AN UNSAFE ENVIRONMENT? NO . ENDOCRINOLOGY: ARE YOU DIABETIC? YES, GLUCOSES HAVE BEEN RUNNING AROUND 140 . OTHER: DO YOU NEED ANY PRESCRIPTIONS? YES . IF YES, PLEASE LIST: ENDOCET AND POSS. ROBAXIN . ANY NEW PROBLEMS WITH YOUR MEDICATIONS? NO . WHEN DID YOU LAST EAT? ____ . WHEN DID YOU LAST DRINK? ____ . WHAT DID YOU LAST DRINK? ____ . NAME OF PERSON DRIVING YOU HOME? ____ . DO YOU HAVE ANY OTHER QUESTIONS OR CONCERNS NO . VITAL SIGNS WT 215 LBS, HT 71 IN, BMI 29.98 INDEX, BP 108/62 MM HG, HR 79 /MIN, RR 16 /MIN, TEMP 97.6 F, OXYGEN SAT % 93, REVIEWED BY: AD. EXAMINATION GENERAL EXAMINATION: LUNGS:LUNG SOUNDS ARE CLEAR. HEART:HEART RATE REGULAR. MUSCULOSKELETAL:TRIGGER POINTS:, ELICITED WITH PALPATION OVER RIGHT LUMBAR PARAVERTEBRAL. RESTRICTION OF ROM IN THIS AREA. DIAGNOSTIC: . ASSESSMENTS LOW BACK PAIN OF OVER 3 MONTHS DURATION - M54.5 (PRIMARY) CHRONIC PRESCRIPTION OPIATE USE - Z79.891 MYALGIA - M79.1 POST LAMINECTOMY SYNDROME - M96.1 TREATMENT LOW BACK PAIN OF OVER 3 MONTHS DURATION CONTINUE GABAPENTIN CAPSULE, 300 MG, 1 CAPSULE, ORALLY, THREE TIMES A DAY REFILL ENDOCET TABLET, 10-325 MG, 1, ORALLY, Q6-8H PRN MDD3 TRACEY, 30 DAY(S), 90, REFILLS 0 NOTES: ISTOP REGISTRY REVIEWED [id number] RISKS AND BENEFITS OF NARCOTIC/OPIOD MEDICATIONS WERE REVIEWED WITH PATIENT - THIS INCLUDES BUT IS NOT LIMITED TO RISK OF DEPENDANCE/DEVELOPMENT OF ADDICTION, MOOD DISTURBANCE AND DEPRESSION, OSTEOPOROSIS, HORMONAL AND LABIDAL CHANGES, RESPIRATORY DEPRESSION AND . PATIENT IS ADVISED NOT TO DRIVE WHILE ON THESE MEDICATIONS, AND DEMNOSTRATES COMPLLIANCE. BRINGS IN MEDICATIONS WHICH IS APPROPRIATE FOR WHAT WAS DISPENSED. RECENT URINE TOXICOLOGY REVIEWED. NO UNAUTHORIZED MEDICATIONS. NO ILLICIT SUBSTANCES AND PRESCRIBED MEDICATIONS WERE PRESENT. PROCEDURE CODES [id number] ESTABILISHED PATIENT [facility] FACILITY CHARGE G8730 PAIN ASSESS POS TOOL F/U PLAN DOC G8427 DOC MEDS VERIFIED W/PT OR RE DISPOSITION & COMMUNICATION FOLLOW UP 2 MONTHS ELECTRONICALLY SIGNED BY DANNY LEE ON 08/24/2017 AT 07:56 AM EDT DISCLAIMER : THIS IS A VISIT SUMMARY EXTRACTED FROM THE [employer] CHART. IT IS NOT A COPY OF THE [employer] PROGRESS NOTE. RAMANDEEP
== END ==
LOC: M PAIN 10:00
PROVIDERS: ATTEND Nurse Practitioner Family
DX: G89.29 Other chronic pain (principal); M54.5 Low back pain; M79.1 Myalgia; M96.1 Postlaminectomy syndrome, not elsewhere classified; F17.210 Nicotine dependence, cigarettes, uncomplicated; N40.0 Benign prostatic hyperplasia without lower urinary tract symptoms; I25.2 Old myocardial infarction; J30.81 Allergic rhinitis due to animal (cat) (dog) hair and dander; I48.91 Unspecified atrial fibrillation; E11.9 Type 2 diabetes mellitus without complications; Z88.1 Allergy status to other antibiotic agents; Z79.891 Long term (current) use of opiate analgesic; Z79.82 Long term (current) use of aspirin; Z79.84 Long term (current) use of oral hypoglycemic drugs; Z79.01 Long term (current) use of anticoagulants; Z79.899 Other long term (current) drug therapy

== ENCOUNTER → 2017-12-10 | Outpatient (CLI) | payer MEDICARE | LOC: M PAIN 10:30 | DX: M54.5 Low back pain (principal); M79.1 Myalgia; M96.1 Postlaminectomy syndrome, not elsewhere classified; E11.9 Type 2 diabetes mellitus without complications; I48.91 Unspecified atrial fibrillation; J30.89 Other allergic rhinitis; J30.81 Allergic rhinitis due to animal (cat) (dog) hair and dander; F17.210 Nicotine dependence, cigarettes, uncomplicated; Z79.01 Long term (current) use of anticoagulants; Z79.899 Other long term (current) drug therapy; Z79.891 Long term (current) use of opiate analgesic; Z88.1 Allergy status to other antibiotic agents; Z86.79 Personal history of other diseases of the circulatory system | CPT/HCPCS: G0463 ==

== ENCOUNTER → 2018-02-07 | Outpatient (CLI) | payer MEDICARE | END | disposition home or self-care (01) | LOC: M PAIN 14:15 | DX: G89.29 Other chronic pain (principal); M54.5 Low back pain; M79.1 Myalgia; M96.1 Postlaminectomy syndrome, not elsewhere classified; N40.0 Benign prostatic hyperplasia without lower urinary tract symptoms; I48.91 Unspecified atrial fibrillation; E11.9 Type 2 diabetes mellitus without complications; Z86.718 Personal history of other venous thrombosis and embolism; Z79.899 Other long term (current) drug therapy; Z79.82 Long term (current) use of aspirin; Z79.01 Long term (current) use of anticoagulants; Z79.84 Long term (current) use of oral hypoglycemic drugs; Z88.0 Allergy status to penicillin; J30.2 Other seasonal allergic rhinitis; J30.81 Allergic rhinitis due to animal (cat) (dog) hair and dander; F17.210 Nicotine dependence, cigarettes, uncomplicated | CPT/HCPCS: G0463 ==

== ENCOUNTER → 2018-05-10 | Outpatient (CLI) | payer MEDICARE | LOC: M PAIN 14:30 | DX: M54.5 Low back pain (principal); M79.1 Myalgia; M96.1 Postlaminectomy syndrome, not elsewhere classified; G89.29 Other chronic pain; E11.9 Type 2 diabetes mellitus without complications; I48.91 Unspecified atrial fibrillation; J30.81 Allergic rhinitis due to animal (cat) (dog) hair and dander; Z79.01 Long term (current) use of anticoagulants; Z79.82 Long term (current) use of aspirin; Z79.84 Long term (current) use of oral hypoglycemic drugs; Z79.899 Other long term (current) drug therapy; Z88.1 Allergy status to other antibiotic agents; Z86.79 Personal history of other diseases of the circulatory system; Z87.891 Personal history of nicotine dependence; Z91.81 History of falling; Z95.1 Presence of aortocoronary bypass graft | CPT/HCPCS: G0463 ==

== ENCOUNTER → 2018-09-09 | Outpatient (CLI) | payer MEDICARE | LOC: M PAIN 13:30 | DX: M54.5 Low back pain (principal); G89.29 Other chronic pain; E11.9 Type 2 diabetes mellitus without complications; J30.81 Allergic rhinitis due to animal (cat) (dog) hair and dander; Z79.01 Long term (current) use of anticoagulants; Z79.82 Long term (current) use of aspirin; Z79.4 Long term (current) use of insulin; Z79.899 Other long term (current) drug therapy; Z88.1 Allergy status to other antibiotic agents; Z86.79 Personal history of other diseases of the circulatory system; Z87.891 Personal history of nicotine dependence | CPT/HCPCS: G0463 ==

== ENCOUNTER → 2018-11-09 | Outpatient (CLI) | payer MEDICARE ==
[~2018-11-09] MED LIST changes: +FLOM0.4C39 PO; -FLOM5CAP PO; -GABA-282 PO; +GABA-843 PO; -LASI80TA PO; +LASI80TA3 PO; +OXYC10TA3 PO; -OXYC1TAB16 PO
--- NOTE | 2018-11-28 01:28 | ECWPNPC ---
PATIENT NAME: CHUYITA CHEN : 1940 GENDER: MALE VISIT DATE: 11/09/2018 DISCHARGE DATE: 11/09/18 1241 VISIT LOCKED DATE TIME: PHYSICIAN: DEV HERNANDEZ RESOURCE: DEV HERNANDEZ REASON FOR APPOINTMENT 1. BACK HISTORY OF PRESENT ILLNESS HISTORY OF PRESENT ILLNESS: HERE FOR F/U OF CHRONIC LOW BACK PAIN.RATING PAIN VAS 6/10.DESCRIBES PAIN CONSTANT AND SHARP.CONTINUES TO USE OXYCODONE 10/325 Q8H PRN AND GABAPENTIN 300MG TID.FINDS MEDICATION EFFECTIVE AT REDUCING PAIN AND KEEPING HIM COMFORTABLE.DENIES SIDE EFFECTS.RECENT HOSPITALIZATION FOR EMERGENT TRIPLE BYPASS SURGERY COMPLICATED BY PULNMONARY COMPLICATIONS.RECENT HOSPITALIZATION FOR COPD AND CONFUSION.DISCUSSED MEDICATION .PLAN IS TO REDUCE OXYCODONE DUE TO HIS RECENT COMPROMISED MEDICAL STATUS. PAIN THE PATIENT DESCRIBES THE PAIN... THE PATIENT DESCRIBES THE PAIN... THE PATIENT DESCRIBES THE PAIN... THE PATIENT DESCRIBES THE PAIN... FALL RISK SCREENING: SCREENING :NO FALLS IN THE PAST YEAR CURRENT MEDICATIONS TAKING SYMBICORT 80-4.5 MCG/ACT AEROSOL 2 PUFFS INHALATION TWICE A DAY TAKING VENTOLIN HFA 1-2 PUFFS NEEDED INHALATION NEEDED TAKING ASPIRIN ADULT LOW STRENGTH 81 MG 1 TABLET ORALLY ONCE A DAY TAKING FINASTERIDE 5 MG TABLET 1 TABLET ORALLY ONCE A DAY TAKING FENOFIBRATE 43 MG TABLET 1 TABLET ORALLY ONCE A DAY TAKING METFORMIN HCL 1000 MG TABLET 1 TABLET WITH MEALS ORALLY TWICE A DAY TAKING JANUVIA 50 MG TABLET 1 TABLET ORALLY ONCE A DAY TAKING VITAMIN D 2000 UNIT CAPSULE 2 ORALLY DAILY TAKING WARFARIN SODIUM 4 MG TABLET 1 TABLET ORALLY DAILY DIRECTED TAKING ATORVASTATIN CALCIUM 40 MG TABLET 1 TABLET ORALLY ONCE A DAY TAKING GLIPIZIDE 10 MG TABLET 1 TABLET ORALLY TWICE A DAY TAKING ALBUTEROL SULFATE (2.5 MG/3ML) 0.083% NEBULIZATION SOLUTION 3 ML INHALATION THREE TIMES A DAY NEEDED TAKING SODIUM POLYSTYRENE SULFONATE 15 GM/60ML SUSPENSION 60 ML ORALLY ONCE A DAY TAKING TOPROL XL 25 MG TABLET EXTENDED RELEASE 24 HOUR 1 TABLET ORALLY ONCE A DAY TAKING LISINOPRIL 5 MG TABLET 1 TABLET ORALLY QOD TAKING OMEPRAZOLE 20 MG CAPSULE DELAYED RELEASE 1 CAPSULE ORALLY ONCE A DAY TAKING AMIODARONE HCL 200 MG TABLET 1 TABLET ORALLY ONCE A DAY TAKING ACETAMINOPHEN 325 MG TABLET 1 TABLET NEEDED ORALLY EVERY 4 HRS TAKING SAEID NINO 300 UNIT/ML SOLUTION PEN-INJECTOR SUBCUTANEOUS 10 UNITS NIGHTLY TAKING SINGULAIR 10 MG TABLET 1 TABLET ORALLY ONCE A DAY TAKING FUROSEMIDE 20 MG TABLET 1 TABLET ORALLY ONCE A DAY TAKING OXYCODONE-ACETAMINOPHEN 10-325 MG TABLET 1 TABLET NEEDED ORALLY EVERY 6 HRS MDD4 TAKING GABAPENTIN 300 MG CAPSULE 1 CAPSULE ORALLY THREE TIMES A DAY TAKING ZOFRAN 4 MG TABLET 1 CAP ORALLY PRN TAKING METRONIDAZOLE 500 MG TABLET 1 TABLET ORALLY TWICE A DAY NOT-TAKING ENALAPRIL MALEATE 20 MG TABLET 1 TABLET ORALLY TWICE A DAY NOT-TAKING METOPROLOL TARTRATE 25 MG TABLET 1 TABLET ORALLY TWICE A DAY NOT-TAKING MONTELUKAST SODIUM 10 MG TABLET ORALLY ONCE A DAY NOT-TAKING TAMSULOSIN HCL 0.4 MG CAPSULE EXTENDED RELEASE 2 CAPSULE ORALLY DAILY NOT-TAKING ENTRESTO 24-26 MG TABLET 1 TABLET ORALLY TWICE A DAY NOT-TAKING ENDOCET 10-325 MG TABLET 1 ORALLY Q6-8H PRN MDD3 TRACEY NOT-TAKING CYCLOBENZAPRINE HCL 10 MG TABLET 1 TABLET NEEDED ORALLY Q8H PRN MEDICATION LIST REVIEWED AND RECONCILED WITH THE PATIENT PAST MEDICAL HISTORY 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 SOCIAL HISTORY GENERAL: TOBACCO USE ARE YOU A:FORMER SMOKER HOW LONG HAS IT BEEN SINCE YOU LAST SMOKED?1-3 MONTHS ALCOHOL SCREENING DID YOU HAVE A DRINK CONTAINING ALCOHOL IN THE PAST YEAR?NO POINTS0 INTERPRETATIONNEGATIVE RECREATIONAL DRUG USE DRUG USE?NO CAFFEINE CAFFEINE USE?NO ORIENTAL ORTHODOX [id number] [employer] LANGUAGE LANGUAGES SPOKEN:BURUNDIAN LEARNING BARRIERS / SPECIAL NEEDS CHANGE FROM LAST VISIT?NO BARRIERS TO LEARNING?NO HEARING IMPAIRED?YES VISION IMPAIRED?YES COGNITIVELY IMPAIRED?NO :CORRECTIVE LENSES READINESS TO LEARN?YES LEARNING PREFERENCES?NO LEARNING CAPABILITIES PRESENT?YES EMOTIONAL BARRIERS?NO SPECIAL DEVICES?YES USES CRUTCHES ALSO :CANE OUTSOLE MOLDER 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 EXERCISE: WALKS. PAIN CLINIC PFS, CLERGY, PUBLIC HEALTH REFERRALS PFS REFERRAL NEEDED?NO CLERGY REFERRAL NEEDED?NO PUBLIC HEALTH REFERRAL NEEDED?NO WAS THE PROVIDER NOTIFIED OF ANY PERTINENT INFO?NO HAS THE PATIENT BEEN EDUCATED REGARDING HIS/HER PLAN OF CARE?YES ENCOURAGED HEAT/COLD TO HELP WITH PAIN CONTROL. HAS THE PATIENT BEEN EDUCATED REGARDING PAIN, THE RISK FOR PAIN, THE IMPORTANCE OF EFFECTIVE PAIN MANAGEMENT, AND THE PAIN ASSESSMENT PROCESS?YES ADVANCE DIRECTIVE ADVANCE DIRECTIVE DISCUSSED WITH PATIENT:YES DECLINED INFO AT THIS TIME 08/06/17 1044 REVIEWED BY 09/09/18 1412 REVIEWED WITH PT BV. HOSPITALIZATION/MAJOR DIAGNOSTIC PROCEDURE SURGERIES REVIEW OF SYSTEMS REVIEWED BY: PROVIDER: DEV DELGADO . CONSTITUTIONAL: ANY CHANGE IN YOUR MEDICAL CONDITION? NO . CHILLS NO . FEVER NO . INFECTION: DO YOU HAVE NEW INFECTIONS? YES, BOWEL INFECTION, TX'D W ABX . DO YOU HAVE HISTORY OF MRSA? NO . MUSCULOSKELETAL: ANY NEW PATTERNS OF PAIN OR NUMBNESS? YES, PAIN IS MORE SEVERE X 1WEEK . GASTROENTEROLOGY: ANY NEW CHANGE IN BOWEL CONTROL? NO . GENITOURINARY: ANY NEW CHANGE IN BLADDER CONTROL? NO . IS THERE A CHANCE YOU COULD BE ? NO . HEMATOLOGY/LYMPH: DO YOU TAKE ANY BLOOD THINNERS? (FOR EXAMPLE- COUMADIN, PLAVIX, AGGRENOX, PLATEL, PRADAXA, OR XARELTO) YES, WARFARIN . WHEN WAS YOUR LAST DOSE? DATE: TIME: . NEUROLOGY: HAVE YOU FALLEN IN THE PAST 6 MONTHS? YES, FELL LAST WEEK FROM PAIN, PT DENIES INJURIES . ANY NEW EXTREMITY NUMBNESS OR WEAKNESS? NO . CARDIOLOGY: DO YOU HAVE A PACEMAKER OR DEFIBRILLATOR? NO . RESPIRATORY: HAVE YOU BEEN SICK IN THE PAST WEEK? YES, BOWEL INFECTION TX'D W ABX . FEVER NO . FLU LIKE SYMPTOMS? NO . COUGH NO . INTEGUMENTARY: DO YOU HAVE ANY RASHES OR OPEN SORES? NO . ALLERGIC/IMMUNO: ARE YOU ALLERGIC TO SHELLFISH OR IV DYE? NO . ANY NEW ALLERGIES? NO . PSYCHIATRIC: DO YOU HAVE THOUGHTS OF HURTING YOURSELF OR SOMEONE ELSE? NO . ARE YOU ABUSED, NEGLECTED, OR IN AN UNSAFE ENVIRONMENT? NO . ENDOCRINOLOGY: ARE YOU DIABETIC? YES . OTHER: DO YOU NEED ANY PRESCRIPTIONS? YES, ENDOCET . IF YES, PLEASE LIST: ____ . ANY NEW PROBLEMS WITH YOUR MEDICATIONS? NO . WHEN DID YOU LAST EAT? ____ . WHEN DID YOU LAST DRINK? ____ . WHAT DID YOU LAST DRINK? ____ . NAME OF PERSON DRIVING YOU HOME? ____ . DO YOU HAVE ANY OTHER QUESTIONS OR CONCERNS NO . VITAL SIGNS WT 211 LBS, HT 71 IN, BMI 29.43 INDEX, BP 98/59 MM HG, HR 109 /MIN, RR 18 /MIN, TEMP 98.0 F, OXYGEN SAT % 91%, NA INITIALS AW 1133, REVIEWED BY: EM. EXAMINATION GENERAL EXAMINATION: GENERAL APPEARANCE:AWAKE,ALERT ,PLEAASANT . PSYCHAFFECT NORMAL . LUNGS:LUNG ESPINOZA ARE CLEAR TO AUSCULTATION BILATERALLY. GOOD MOVEMENT OF AIR . HEART:S1, S2 IN A REGULAR RATE AND RHYTHM. NO SIGNIFICANT MURMURS, RUBS OR GALLOPS NOTED . MUSCULOSKELETAL:MUSCLE STRENGTH TESTING 4/5 BILATERAL LOWER EXTREMITIES. LUMBAR SACRAL SPINETRIGGER POINTS:, ELICITED WITH PALPATION OVER RIGHT LUMBAR PARAVERTEBRAL MUSCLES AND RESTRICTION OF ROM IN THIS AREA. ASSESSMENTS MYALGIA, OTHER SITE - M79.18 (PRIMARY) LUMBAR SPINAL STENOSIS - M48.06 TREATMENT MYALGIA, OTHER SITE DECREASE OXYCODONE-ACETAMINOPHEN TABLET, 7.5-325 MG, 1 TABLET NEEDED, ORALLY, EVERY 6 HRS MDD4, 30 DAY(S), 120, REFILLS 0 REFILL GABAPENTIN CAPSULE, 300 MG, 1 CAPSULE, ORALLY, THREE TIMES A DAY, 30 DAY(S), 90 CAPSULE, REFILLS 2 NOTES: TPI RIGHT LOW BACK, ISTOP REGISTRY REVIEWED AND DEMONSTRATES COMPLLIANCE. BRINGS IN MEDICATIONS WHICH IS APPROPRIATE FOR WHAT WAS DISPENSED. RECENT URINE TOXICOLOGY REVIEWED. NO UNAUTHORIZED MEDICATIONS. NO ILLICIT SUBSTANCES AND PRESCRIBED MEDICATIONS WERE PRESENT. , RISKS AND BENEFITS OF NARCOTIC/OPIOD MEDICATIONS WERE REVIEWED WITH PATIENT - THIS INCLUDES BUT IS NOT LIMITED TO RISK OF DEPENDANCE/DEVELOPMENT OF ADDICTION, MOOD DISTURBANCE AND DEPRESSION, OSTEOPOROSIS, HORMONAL AND LABIDAL CHANGES, RESPIRATORY DEPRESSION AND . PATIENT IS ADVISED NOT TO DRIVE OR DRINK ALCOHOL WHILE ON THESE MEDICATIONS. PREVENTIVE MEDICINE PAIN CLINIC TEACHING: PROCEDURE TEACHING PRE TRIGGER POINT INSTRUCTIONS REVIEWED WITH PT. VERBALIZED UNDERSTANDING.. DISPOSITION & COMMUNICATION FOLLOW UP POST (REASON: TPI RIGHT LOW BACK) ELECTRONICALLY SIGNED BY DANNY CAZARES ON 11/27/2018 AT 06:53 PM EST DISCLAIMER : THIS IS A VISIT SUMMARY EXTRACTED FROM THE [employer] CHART. IT IS NOT A COPY OF THE [employer] PROGRESS NOTE. MTDD
== END ==
LOC: M PAIN 11:30
PROVIDERS: ATTEND Nurse Practitioner Family
DX: M79.18 Myalgia, other site (principal); M48.061 Spinal stenosis, lumbar region without neurogenic claudication; E11.9 Type 2 diabetes mellitus without complications; I48.91 Unspecified atrial fibrillation; J30.81 Allergic rhinitis due to animal (cat) (dog) hair and dander; Z79.01 Long term (current) use of anticoagulants; Z79.82 Long term (current) use of aspirin; Z79.84 Long term (current) use of oral hypoglycemic drugs; Z79.899 Other long term (current) drug therapy; Z88.1 Allergy status to other antibiotic agents; Z86.79 Personal history of other diseases of the circulatory system; Z87.891 Personal history of nicotine dependence

== ENCOUNTER → 2018-11-18 | Outpatient (CLI) | payer MEDICARE ==
[~2018-11-18] MED LIST changes: +BUPIVACAINE HCL 0.25% 10 ML VIAL As Ordered ONE; +BUPIVACAINE HCL 0.25% 30 ML VIAL As Ordered ONE; +TRIAMCINOLONE ACETONIDE SUSP 40 MG/ML VIAL (J3301) As Ordered ONE; +diazePAM 5 MG TAB As Ordered ONE; +oxyCODONE 5MG TAB As Ordered ONE
--- NOTE | 2018-12-06 01:01 | ECWPNPC ---
PATIENT NAME: CHUYITA CHEN : 1940 GENDER: MALE VISIT DATE: 11/18/2018 DISCHARGE DATE: 11/18/18 1354 VISIT LOCKED DATE TIME: PHYSICIAN: ARMANI ROSA MD RESOURCE: ARMANI ROSA MD REASON FOR APPOINTMENT 1. TPI HISTORY OF PRESENT ILLNESS HISTORY OF PRESENT ILLNESS: PAIN THE PATIENT DESCRIBES THE PAIN... 78 YEAR OLD MALE PATIENT WITH A HISTORY OF CHRONIC LOW BACK PAIN. THE PATIENT DESCRIBES THE PAIN SHARP AND CONTINUOUS WITH A PAIN SCORE OF 6-9/10 DEPENDING ON PHYSICAL ACTIVITY. PATIENT DENIES UNEXPLAINABLE WEIGHT LOSS, FEVER, CHILLS, NEW CHANGES ON HIS URINARY OR BOWEL CONTROL. FALL RISK SCREENING: SCREENING :NO FALLS IN THE PAST YEAR CURRENT MEDICATIONS TAKING SYMBICORT 80-4.5 MCG/ACT AEROSOL 2 PUFFS INHALATION TWICE A DAY, NOTES: 11/17/18 230 TAKING VENTOLIN HFA 1-2 PUFFS NEEDED INHALATION NEEDED, NOTES: 11/18/18 0200 TAKING ASPIRIN ADULT LOW STRENGTH 81 MG 1 TABLET ORALLY ONCE A DAY, NOTES: 0800 TAKING FINASTERIDE 5 MG TABLET 1 TABLET ORALLY ONCE A DAY, NOTES: 11/17/18 230 TAKING FENOFIBRATE 43 MG TABLET 1 TABLET ORALLY ONCE A DAY, NOTES: 11/17/18 230 TAKING METFORMIN HCL 1000 MG TABLET 1 TABLET WITH MEALS ORALLY TWICE A DAY, NOTES: 11/17/18 230 TAKING JANUVIA 50 MG TABLET 1 TABLET ORALLY ONCE A DAY, NOTES: 11/17/18 230 TAKING VITAMIN D 2000 UNIT CAPSULE 2 ORALLY DAILY, NOTES: 0800 TAKING ATORVASTATIN CALCIUM 40 MG TABLET 1 TABLET ORALLY ONCE A DAY, NOTES: 0800 TAKING GLIPIZIDE 10 MG TABLET 1 TABLET ORALLY TWICE A DAY, NOTES: 11/17/18 230 TAKING ALBUTEROL SULFATE (2.5 MG/3ML) 0.083% NEBULIZATION SOLUTION 3 ML INHALATION THREE TIMES A DAY NEEDED, NOTES: 11/17/18 230 TAKING SODIUM POLYSTYRENE SULFONATE 15 GM/60ML SUSPENSION 60 ML ORALLY ONCE A DAY, NOTES: 11/17/18 1900 TAKING TOPROL XL 25 MG TABLET EXTENDED RELEASE 24 HOUR 1 TABLET ORALLY ONCE A DAY, NOTES: 0800 TAKING LISINOPRIL 5 MG TABLET 1 TABLET ORALLY QOD, NOTES: 0800 TAKING OMEPRAZOLE 20 MG CAPSULE DELAYED RELEASE 1 CAPSULE ORALLY ONCE A DAY, NOTES: 0800 TAKING AMIODARONE HCL 200 MG TABLET 1 TABLET ORALLY ONCE A DAY, NOTES: 0800 TAKING ACETAMINOPHEN 325 MG TABLET 1 TABLET NEEDED ORALLY EVERY 4 HRS, NOTES: MONTHS AGO TAKING TOUJEO SOLOSTAR 300 UNIT/ML SOLUTION PEN-INJECTOR SUBCUTANEOUS 10 UNITS NIGHTLY, NOTES: 11/17/18 2300 TAKING SINGULAIR 10 MG TABLET 1 TABLET ORALLY ONCE A DAY, NOTES: 11/17/18 2300 TAKING FUROSEMIDE 20 MG TABLET 1 TABLET ORALLY ONCE A DAY, NOTES: 11/17/18 0700 TAKING ZOFRAN 4 MG TABLET 1 CAP ORALLY PRN, NOTES: 11/17/18 0700 TAKING OXYCODONE-ACETAMINOPHEN 7.5-325 MG TABLET 1 TABLET NEEDED ORALLY EVERY 6 HRS MDD4 TAKING GABAPENTIN 300 MG CAPSULE 1 CAPSULE ORALLY THREE TIMES A DAY TAKING ENDOCET 10-325 MG TABLET 1 ORALLY Q6-8H PRN MDD3 RTACEY TAKING ELIQUIS 5 MG TABLET ORALLY BID, NOTES: UNSURE OF DOSE 11/17/18 1900 NOT-TAKING WARFARIN SODIUM 4 MG TABLET 1 TABLET ORALLY DAILY DIRECTED, NOTES: STOPPED 5 DAYS AGO, STARTED ON ELIQUIS NOT-TAKING METRONIDAZOLE 500 MG TABLET 1 TABLET ORALLY TWICE A DAY, NOTES: 2-3 DAYS AGO NOT-TAKING ENALAPRIL MALEATE 20 MG TABLET 1 TABLET ORALLY TWICE A DAY NOT-TAKING METOPROLOL TARTRATE 25 MG TABLET 1 TABLET ORALLY TWICE A DAY NOT-TAKING MONTELUKAST SODIUM 10 MG TABLET ORALLY ONCE A DAY NOT-TAKING TAMSULOSIN HCL 0.4 MG CAPSULE EXTENDED RELEASE 2 CAPSULE ORALLY DAILY NOT-TAKING ENTRESTO 24-26 MG TABLET 1 TABLET ORALLY TWICE A DAY NOT-TAKING CYCLOBENZAPRINE HCL 10 MG TABLET 1 TABLET NEEDED ORALLY Q8H PRN MEDICATION LIST REVIEWED AND RECONCILED WITH THE PATIENT PAST MEDICAL HISTORY 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 SOCIAL HISTORY GENERAL: TOBACCO USE ARE YOU A:FORMER SMOKER HOW LONG HAS IT BEEN SINCE YOU LAST SMOKED?6-12 MONTHS ALCOHOL SCREENING DID YOU HAVE A DRINK CONTAINING ALCOHOL IN THE PAST YEAR?NO POINTS0 INTERPRETATIONNEGATIVE RECREATIONAL DRUG USE DRUG USE?NO CAFFEINE CAFFEINE USE?NO MANDAEN [id number] [employer]AZ[employer] LANGUAGE LANGUAGES SPOKEN:WELSH LEARNING BARRIERS / SPECIAL NEEDS CHANGE FROM LAST VISIT?NO BARRIERS TO LEARNING?NO HEARING IMPAIRED?YES VISION IMPAIRED?YES COGNITIVELY IMPAIRED?NO :CORRECTIVE LENSES READINESS TO LEARN?YES LEARNING PREFERENCES?NO LEARNING CAPABILITIES PRESENT?YES EMOTIONAL BARRIERS?NO SPECIAL DEVICES?YES USES CRUTCHES 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 EXERCISE: WALKS. PAIN CLINIC PFS, CLERGY, PUBLIC HEALTH REFERRALS PFS REFERRAL NEEDED?NO CLERGY REFERRAL NEEDED?NO PUBLIC HEALTH REFERRAL NEEDED?NO WAS THE PROVIDER NOTIFIED OF ANY PERTINENT INFO?NO HAS THE PATIENT BEEN EDUCATED REGARDING HIS/HER PLAN OF CARE?YES ENCOURAGED HEAT/COLD TO HELP WITH PAIN CONTROL. HAS THE PATIENT BEEN EDUCATED REGARDING PAIN, THE RISK FOR PAIN, THE IMPORTANCE OF EFFECTIVE PAIN MANAGEMENT, AND THE PAIN ASSESSMENT PROCESS?YES ADVANCE DIRECTIVE ADVANCE DIRECTIVE DISCUSSED WITH PATIENT:YES DECLINED INFO AT THIS TIME 08/06/17 1044 REVIEWED BY 09/09/18 1412 REVIEWED WITH PT BV. HOSPITALIZATION/MAJOR DIAGNOSTIC PROCEDURE SURGERIES REVIEW OF SYSTEMS REVIEWED BY: PROVIDER: ARMANI ROSA MD . CONSTITUTIONAL: ANY CHANGE IN YOUR MEDICAL CONDITION? NO . CHILLS NO . FEVER NO . INFECTION: DO YOU HAVE NEW INFECTIONS? YES, BOWEL INFECTION TX'D W ABX, RESOLVED . DO YOU HAVE HISTORY OF MRSA? NO . MUSCULOSKELETAL: ANY NEW PATTERNS OF PAIN OR NUMBNESS? NO . GASTROENTEROLOGY: ANY NEW CHANGE IN BOWEL CONTROL? NO . GENITOURINARY: ANY NEW CHANGE IN BLADDER CONTROL? NO . IS THERE A CHANCE YOU COULD BE ? NO . HEMATOLOGY/LYMPH: DO YOU TAKE ANY BLOOD THINNERS? (FOR EXAMPLE- COUMADIN, PLAVIX, AGGRENOX, PLATEL, PRADAXA, OR XARELTO) YES, SUE 11/17/18 2300 . WHEN WAS YOUR LAST DOSE? DATE: TIME: . NEUROLOGY: HAVE YOU FALLEN IN THE PAST 12 MONTHS? NO . ANY NEW EXTREMITY NUMBNESS OR WEAKNESS? NO . CARDIOLOGY: DO YOU HAVE A PACEMAKER OR DEFIBRILLATOR? NO . RESPIRATORY: HAVE YOU BEEN SICK IN THE PAST WEEK? NO . FEVER NO . FLU LIKE SYMPTOMS? NO . COUGH NO . INTEGUMENTARY: DO YOU HAVE ANY RASHES OR OPEN SORES? NO . ALLERGIC/IMMUNO: ARE YOU ALLERGIC TO IV DYE? NO . ANY NEW ALLERGIES? NO . PSYCHIATRIC: DO YOU HAVE THOUGHTS OF HURTING YOURSELF OR SOMEONE ELSE? NO . ARE YOU ABUSED, NEGLECTED, OR IN AN UNSAFE ENVIRONMENT? NO . ENDOCRINOLOGY: ARE YOU DIABETIC? YES, FS [phone] . OTHER: DO YOU NEED ANY PRESCRIPTIONS? NO . IF YES, PLEASE LIST: ____ . ANY NEW PROBLEMS WITH YOUR MEDICATIONS? NO . WHEN DID YOU LAST EAT? 11/17/18 1900 . WHEN DID YOU LAST DRINK? 11/18/18 0700 . WHAT DID YOU LAST DRINK? WATER . NAME OF PERSON DRIVING YOU HOME? CAMACHO . DO YOU HAVE ANY OTHER QUESTIONS OR CONCERNS NO . VITAL SIGNS WT 210 LBS, HT 71 IN, BMI 29.29 INDEX, BP 141/77 MM HG, HR 98 /MIN, RR 18 /MIN, TEMP 97.6 F, OXYGEN SAT % 95%, NA INITIALS SC 10:37, REVIEWED BY: EM. EXAMINATION GENERAL EXAMINATION: PATIENT IS ALERT O X 3 AND COOPERATIVE. TENDERNESS IN THE LOW BACK AREA. PRESENCE OF TRIGGER POINTS AND BANDS OF TISSUE WITH RESTRICTION OF MOVEMENT OF THE BACK. ASSESSMENTS MYALGIA, OTHER SITE - M79.18 (PRIMARY) TREATMENT MYALGIA, OTHER SITE CLINICAL NOTES: WE DISCUSSED SEVERAL ISSUES WITH MR. CHEN'S PAIN MANAGEMENT CASE. THE PATIENT WAS BOOKED FOR A TRIGGER POINT INJECTION TODAY, BUT HE IS HAVING AN MRI TOMORROW SO WE WILL RESCHEDULE THE INJECTION FOR AFTER THE MRI. INSTRUCTIONS WERE GIVEN, QUESTIONS WERE ANSWERED, PATIENT REPORTS UNDERSTANDING AND AGREES WITH THE PLAN. I, EVA DAVID, DOCUMENTED THE ABOVE INFORMATION ACTING A SCRIBE FOR DR. ROSA. I HAVE REVIEWED THE ABOVE DOCUMENT, WRITTEN BY EVA ALLENIBKayode AND I VERIFY THAT IT IS ACCURATE. DISPOSITION & COMMUNICATION FOLLOW UP TPI NEXT WEEK. ELECTRONICALLY SIGNED BY ARMANI ROSA MD, MD ON 12/05/2018 AT 10:20 AM EST DISCLAIMER : THIS IS A VISIT SUMMARY EXTRACTED FROM THE [employer] CHART. IT IS NOT A COPY OF THE [facility] PROGRESS NOTE. RAMANDEEP
== END ==
LOC: M PAIN 11:00
PROVIDERS: ATTEND Anesthesiology
DX: M79.81 Nontraumatic hematoma of soft tissue (principal); E11.9 Type 2 diabetes mellitus without complications; Z53.29 Procedure and treatment not carried out because of patient's decision for other reasons; J30.81 Allergic rhinitis due to animal (cat) (dog) hair and dander; Z79.01 Long term (current) use of anticoagulants; Z79.82 Long term (current) use of aspirin; Z79.84 Long term (current) use of oral hypoglycemic drugs; Z79.899 Other long term (current) drug therapy; Z88.1 Allergy status to other antibiotic agents; Z86.79 Personal history of other diseases of the circulatory system; Z87.891 Personal history of nicotine dependence

== ENCOUNTER → 2019-02-16 | Outpatient (CLI) | payer MEDICARE ==
[~2019-02-16] MED LIST changes: -/METO25TAB PO; -BUPIVACAINE HCL 0.25% 10 ML VIAL As Ordered ONE; -BUPIVACAINE HCL 0.25% 30 ML VIAL As Ordered ONE; +METO1TAB87 PO; -TERA5CA PO; +TERA5CAP60 PO; -TRIAMCINOLONE ACETONIDE SUSP 40 MG/ML VIAL (J3301) As Ordered ONE; -diazePAM 5 MG TAB As Ordered ONE; -oxyCODONE 5MG TAB As Ordered ONE
--- NOTE | 2019-03-05 23:49 | ECWPNPC ---
PATIENT NAME: CHUYITA CHEN : 1940 GENDER: MALE VISIT DATE: 02/16/2019 DISCHARGE DATE: 02/16/19 1145 VISIT LOCKED DATE TIME: PHYSICIAN: DEV HERNANDEZ RESOURCE: DEV HERNANDEZ REASON FOR APPOINTMENT 1. BACK/ POST PROCEDURE TPI HISTORY OF PRESENT ILLNESS HISTORY OF PRESENT ILLNESS: HERE FOR F/U OF CHRONIC LOW BACK PAIN.HAS BEEN HOSPITALIZED FREQUENTLY OVER THE PAST YEAR MOST RECENT FOR PNEUMONIA LAST MONTH.HISTORY OF FREQUENT FALLING EPOSODES.ACCOMPANIED IN EXAM ROOM WITH HIS .RATING PAIN VAS 7/10. PAIN THE PATIENT DESCRIBES THE PAIN... FALL RISK SCREENING: SCREENING :NO FALLS REPORTED IN THE LAST YEAR CURRENT MEDICATIONS TAKING SYMBICORT 80-4.5 MCG/ACT AEROSOL 2 PUFFS INHALATION TWICE A DAY TAKING VENTOLIN HFA 1-2 PUFFS NEEDED INHALATION NEEDED TAKING ASPIRIN ADULT LOW STRENGTH 81 MG 1 TABLET ORALLY ONCE A DAY TAKING FINASTERIDE 5 MG TABLET 1 TABLET ORALLY ONCE A DAY TAKING FENOFIBRATE 43 MG TABLET 1 TABLET ORALLY ONCE A DAY TAKING METFORMIN HCL 1000 MG TABLET 1 TABLET WITH MEALS ORALLY TWICE A DAY TAKING JANUVIA 50 MG TABLET 1 TABLET ORALLY ONCE A DAY TAKING VITAMIN D 1000 UNIT TABLET 2 TABLET ORALLY DAILY TAKING ATORVASTATIN CALCIUM 40 MG TABLET 1 TABLET ORALLY ONCE A DAY TAKING ALBUTEROL SULFATE (2.5 MG/3ML) 0.083% NEBULIZATION SOLUTION 3 ML INHALATION THREE TIMES A DAY NEEDED TAKING SODIUM POLYSTYRENE SULFONATE 15 GM/60ML SUSPENSION 60 ML ORALLY ONCE A DAY TAKING OMEPRAZOLE 40 MG CAPSULE DELAYED RELEASE 1 CAPSULE ORALLY ONCE A DAY TAKING ACETAMINOPHEN 325 MG TABLET 1 TABLET NEEDED ORALLY EVERY 4 HRS TAKING TOUJEO SOLOSTAR 300 UNIT/ML SOLUTION PEN-INJECTOR SUBCUTANEOUS 10 UNITS NIGHTLY TAKING SINGULAIR 10 MG TABLET 1 TABLET ORALLY ONCE A DAY TAKING FUROSEMIDE 40 MG TABLET 1 TABLET ORALLY ONCE A DAY TAKING ZOFRAN 4 MG TABLET 1 CAP ORALLY PRN TAKING GABAPENTIN 300 MG CAPSULE 1 CAPSULE ORALLY THREE TIMES A DAY TAKING ELIQUIS 5 MG TABLET ORALLY BID TAKING ENDOCET 10-325 MG TABLET 1 ORALLY Q6-8H PRN MDD3 TRACEY TAKING SPIRIVA HANDIHALER 18 MCG CAPSULE 1 CAPSULE INHALATION ONCE A DAY TAKING IPRATROPIUM-ALBUTEROL 0.5-2.5 (3) MG/3ML SOLUTION 3 ML INHALATION EVERY 6 HRS TAKING DICYCLOMINE HCL 10 MG CAPSULE 1 CAPSULE ORALLY FOUR TIMES A DAY PRN TAKING PROBIOTIC - CAPSULE DIRECTED ORALLY DAILY TAKING VITAMIN B12 1000 MCG TABLET EXTENDED RELEASE 1 TABLET ORALLY ONCE A DAY TAKING DIGOXIN 125 MCG TABLET 1 TABLET ORALLY ONCE A DAY TAKING TAMSULOSIN HCL 0.4 MG CAPSULE EXTENDED RELEASE 2 CAPSULE ORALLY DAILY NOT-TAKING GLIPIZIDE 10 MG TABLET 1 TABLET ORALLY TWICE A DAY NOT-TAKING TOPROL XL 25 MG TABLET EXTENDED RELEASE 24 HOUR 1 TABLET ORALLY ONCE A DAY NOT-TAKING LISINOPRIL 5 MG TABLET 1 TABLET ORALLY QOD NOT-TAKING AMIODARONE HCL 200 MG TABLET 1 TABLET ORALLY ONCE A DAY NOT-TAKING OXYCODONE-ACETAMINOPHEN 7.5-325 MG TABLET 1 TABLET NEEDED ORALLY EVERY 6 HRS MDD4 NOT-TAKING WARFARIN SODIUM 4 MG TABLET 1 TABLET ORALLY DAILY DIRECTED, NOTES: STOPPED 5 DAYS AGO, STARTED ON ELIQUIS NOT-TAKING METRONIDAZOLE 500 MG TABLET 1 TABLET ORALLY TWICE A DAY, NOTES: 2-3 DAYS AGO NOT-TAKING ENALAPRIL MALEATE 20 MG TABLET 1 TABLET ORALLY TWICE A DAY NOT-TAKING METOPROLOL TARTRATE 25 MG TABLET 1 TABLET ORALLY TWICE A DAY NOT-TAKING MONTELUKAST SODIUM 10 MG TABLET ORALLY ONCE A DAY NOT-TAKING ENTRESTO 24-26 MG TABLET 1 TABLET ORALLY TWICE A DAY NOT-TAKING CYCLOBENZAPRINE HCL 10 MG TABLET 1 TABLET NEEDED ORALLY Q8H PRN MEDICATION LIST REVIEWED AND RECONCILED WITH THE PATIENT PAST MEDICAL HISTORY 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 SOCIAL HISTORY GENERAL: TOBACCO USE ARE YOU A:FORMER SMOKER HOW LONG HAS IT BEEN SINCE YOU LAST SMOKED?6-12 MONTHS LATEX QUESTIONNAIRE LATEX ALLERGY : HAVE YOU EVER DEVELOPED ANY TYPE OF REACTION AFTER HANDLING LATEX PRODUCTS SUCH RUBBER GLOVES, CONDOMS, DIAPHRAGMS, BALLOONS, SOCKS, OR UNDERWEAR?NO LATEX ALLERGY : HAVE YOU EVER DEVELOPED ANY TYPE OF REACTION DURING OR AFTER DENTAL APPOINTMENT, VAGINAL/RECTAL EXAMINATION, SURGICAL PROCEDURE, OR ANY OTHER EXPOSURE?NO LATEX RISK : HAVE YOU EVER HAD ANY DIFFICULTY BREATHING OR HIVES AFTER EATING OR HANDLING ANY FRUITS, OR VEGETABLES; SUCH KIWI, BANANAS, STONE FRUITS, OR CHESTNUTSNO LATEX RISK : DO YOU HAVE A PREVIOUS PERSONAL HISTORY OF MORE THAN NINE SURGERIES, SPINA BIFIDA, OR REPEATED CATHERTIZATIONS? NO LATEX RISK : ARE YOU FREQUENTLY EXPOSED TO LATEX PRODUCTS IN YOUR OCCUPATION?NO DATE ASKED : 02/16/2019 ALCOHOL SCREENING DID YOU HAVE A DRINK CONTAINING ALCOHOL IN THE PAST YEAR?NO POINTS0 INTERPRETATIONNEGATIVE RECREATIONAL DRUG USE DRUG USE?NO CAFFEINE CAFFEINE USE?NO [id number] LANGUAGE LANGUAGES SPOKEN:[place]IZ[place] OF [place] LEARNING BARRIERS / SPECIAL NEEDS CHANGE FROM LAST VISIT?NO BARRIERS TO LEARNING?NO HEARING IMPAIRED?YES VISION IMPAIRED?YES :CORRECTIVE LENSES COGNITIVELY IMPAIRED?NO READINESS TO LEARN?YES LEARNING PREFERENCES?NO LEARNING CAPABILITIES PRESENT?YES EMOTIONAL BARRIERS?NO SPECIAL DEVICES?YES USES 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 EXERCISE: WALKS. PAIN CLINIC PFS, CLERGY, PUBLIC HEALTH REFERRALS PFS REFERRAL NEEDED?NO CLERGY REFERRAL NEEDED?NO PUBLIC HEALTH REFERRAL NEEDED?NO WAS THE PROVIDER NOTIFIED OF ANY PERTINENT INFO?NO HAS THE PATIENT BEEN EDUCATED REGARDING HIS/HER PLAN OF CARE?YES ENCOURAGED HEAT/COLD TO HELP WITH PAIN CONTROL. HAS THE PATIENT BEEN EDUCATED REGARDING PAIN, THE RISK FOR PAIN, THE IMPORTANCE OF EFFECTIVE PAIN MANAGEMENT, AND THE PAIN ASSESSMENT PROCESS?YES ADVANCE DIRECTIVE ADVANCE DIRECTIVE DISCUSSED WITH PATIENT:YES PATIENT DECLINED HCP INFORMATION AT THIS TIME, 08/06/17 1044 REVIEWED BY 09/09/18 1412 REVIEWED WITH PT BVREVIEWED WITH PATIENT 02/16/19 1105 JS. HOSPITALIZATION/MAJOR DIAGNOSTIC PROCEDURE SURGERIES DOUBLE PNEUMONIA 12/2018 REVIEW OF SYSTEMS REVIEWED BY: PROVIDER: DEV DELGADO . CONSTITUTIONAL: ANY CHANGE IN YOUR MEDICAL CONDITION? NO . CHILLS NO . FEVER NO . INFECTION: DO YOU HAVE NEW INFECTIONS? NO . DO YOU HAVE HISTORY OF MRSA? NO . MUSCULOSKELETAL: ANY NEW PATTERNS OF PAIN OR NUMBNESS? NO . GASTROENTEROLOGY: ANY NEW CHANGE IN BOWEL CONTROL? NO . GENITOURINARY: ANY NEW CHANGE IN BLADDER CONTROL? NO . IS THERE A CHANCE YOU COULD BE ? NO . HEMATOLOGY/LYMPH: DO YOU TAKE ANY BLOOD THINNERS? (FOR EXAMPLE- COUMADIN, PLAVIX, AGGRENOX, PLATEL, PRADAXA, OR XARELTO) YES, SUE . WHEN WAS YOUR LAST DOSE? DATE: 02/15/19TIME: 1900 . NEUROLOGY: HAVE YOU FALLEN IN THE PAST 12 MONTHS? YES, STATES FALL RELATED TO TRIPPING AND FALLING. STATES NO INJURIES, NO ED VISIT . ANY NEW EXTREMITY NUMBNESS OR WEAKNESS? NO . CARDIOLOGY: DO YOU HAVE A PACEMAKER OR DEFIBRILLATOR? NO . RESPIRATORY: HAVE YOU BEEN SICK IN THE PAST WEEK? NO . FEVER NO . FLU LIKE SYMPTOMS? NO . COUGH YES, STATES COUGH FOR MONTHS, HOSPITALIZED IN DECEMBER WITH DOUBLE PNEUMONIA, STATES STARTING TO CLEAR UP NOW . INTEGUMENTARY: DO YOU HAVE ANY RASHES OR OPEN SORES? NO . ALLERGIC/IMMUNO: ARE YOU ALLERGIC TO IV DYE? NO . ANY NEW ALLERGIES? NO . PSYCHIATRIC: DO YOU HAVE THOUGHTS OF HURTING YOURSELF OR SOMEONE ELSE? NO . ARE YOU ABUSED, NEGLECTED, OR IN AN UNSAFE ENVIRONMENT? NO . ENDOCRINOLOGY: ARE YOU DIABETIC? YES . OTHER: DO YOU NEED ANY PRESCRIPTIONS? YES . IF YES, PLEASE LIST: ____ENDOCET, GABAPENTIN . ANY NEW PROBLEMS WITH YOUR MEDICATIONS? NO . WHEN DID YOU LAST EAT? ____ . WHEN DID YOU LAST DRINK? ____ . WHAT DID YOU LAST DRINK? ____ . NAME OF PERSON DRIVING YOU HOME? ____ . DO YOU HAVE ANY OTHER QUESTIONS OR CONCERNS NO . VITAL SIGNS WT 200 LBS, HT 71 IN, BMI 27.89 INDEX, BP 72/46 MM HG, REPEAT BP 100/60 MANUAL, HR 97 /MIN, RR 18 /MIN, TEMP 99.0 F, OXYGEN SAT % 93% ON 2L O2, SAFE IN ENV? (Y/N) YES, NA INITIALS AW 1047, REVIEWED BY: [facility] NURSE KNOW ABOUT PT BP. EXAMINATION GENERAL EXAMINATION: GENERAL APPEARANCE:AWAKE,ALERT ,PLEAASANT . PSYCHAFFECT NORMAL . LUNGS:LUNG ESPINOZA ARE CLEAR TO AUSCULTATION BILATERALLY. GOOD MOVEMENT OF AIR . HEART:S1, S2 IN A REGULAR RATE AND RHYTHM. NO SIGNIFICANT MURMURS, RUBS OR GALLOPS NOTED . ASSESSMENTS LOW BACK PAIN OF OVER 3 MONTHS DURATION - M54.5 (PRIMARY) TREATMENT LOW BACK PAIN OF OVER 3 MONTHS DURATION REFILL GABAPENTIN CAPSULE, 300 MG, 1 CAPSULE, ORALLY, THREE TIMES A DAY, 30 DAY(S), 90 CAPSULE, REFILLS 2 DECREASE ENDOCET TABLET, 10-325 MG, 1, ORALLY, Q12 HR BID MDD2, 30 DAY(S), 60, REFILLS 0 NOTES: REDUCE OXYCODONE 10/325 TO MAX 2 PER DAY, ISTOP REGISTRY REVIEWED AND DEMONSTRATES COMPLLIANCE. BRINGS IN MEDICATIONS WHICH IS APPROPRIATE FOR WHAT WAS DISPENSED. RECENT URINE TOXICOLOGY REVIEWED. NO UNAUTHORIZED MEDICATIONS. NO ILLICIT SUBSTANCES AND PRESCRIBED MEDICATIONS WERE PRESENT. , RISKS AND BENEFITS OF NARCOTIC/OPIOD MEDICATIONS WERE REVIEWED WITH PATIENT - THIS INCLUDES BUT IS NOT LIMITED TO RISK OF DEPENDANCE/DEVELOPMENT OF ADDICTION, MOOD DISTURBANCE AND DEPRESSION, OSTEOPOROSIS, HORMONAL AND LABIDAL CHANGES, RESPIRATORY DEPRESSION AND . PATIENT IS ADVISED NOT TO DRIVE OR DRINK ALCOHOL WHILE ON THESE MEDICATIONS. PROCEDURE CODES [id number] ESTABILISHED PATIENT [facility] CHARGE DISPOSITION & COMMUNICATION FOLLOW UP 6-8 WKS ELECTRONICALLY SIGNED BY DANNY CAZARES ON 03/05/2019 AT 03:15 PM EDT DISCLAIMER : THIS IS A VISIT SUMMARY EXTRACTED FROM THE [employer] CHART. IT IS NOT A COPY OF THE [employer] PROGRESS NOTE. RAMANDEEP
== END ==
LOC: M PAIN 10:15
PROVIDERS: ATTEND Nurse Practitioner Family
DX: M54.5 Low back pain (principal); G89.29 Other chronic pain; I48.91 Unspecified atrial fibrillation; E11.9 Type 2 diabetes mellitus without complications; Z86.79 Personal history of other diseases of the circulatory system; Z87.891 Personal history of nicotine dependence; Z88.1 Allergy status to other antibiotic agents; Z79.01 Long term (current) use of anticoagulants; Z79.82 Long term (current) use of aspirin; Z79.4 Long term (current) use of insulin; Z79.891 Long term (current) use of opiate analgesic; Z79.899 Other long term (current) drug therapy

== ENCOUNTER → 2019-04-03 | Outpatient (CLI) | payer MEDICARE ==
--- NOTE | 2019-04-18 02:21 | ECWPNPC ---
PATIENT NAME: CHUYITA CHEN : 1940 GENDER: MALE VISIT DATE: 04/03/2019 DISCHARGE DATE: 04/03/19 1237 VISIT LOCKED DATE TIME: PHYSICIAN: DEV HERNANDEZ RESOURCE: DEV HERNANDEZ REASON FOR APPOINTMENT 1. BACK HISTORY OF PRESENT ILLNESS HISTORY OF PRESENT ILLNESS: HERE FOR F/U OF CHRONIC LBP.COMPLAINING OF INCREASE IN LBP SINCE REDUCTION OF PAIN MEDICATION 2 MONTHS AGO.RATING PAIN VAS 6/10.CURRENTLY WAITING FOR CARDIOLOGY CLEARANCE TO HAVE THERAPEUTIC LUMBAR BLOCKS.OVERALL HAS BEEN MORE MEDICALLY STABLE OVER THE PAST FEW MONTHS. PAIN THE PATIENT DESCRIBES THE PAIN... FALL RISK SCREENING: SCREENING :NO FALLS REPORTED IN THE LAST YEAR CURRENT MEDICATIONS TAKING SYMBICORT 80-4.5 MCG/ACT AEROSOL 2 PUFFS INHALATION TWICE A DAY TAKING VENTOLIN HFA 1-2 PUFFS NEEDED INHALATION NEEDED TAKING ASPIRIN ADULT LOW STRENGTH 81 MG 1 TABLET ORALLY ONCE A DAY TAKING FINASTERIDE 5 MG TABLET 1 TABLET ORALLY ONCE A DAY TAKING FENOFIBRATE 43 MG TABLET 1 TABLET ORALLY ONCE A DAY TAKING METFORMIN HCL 1000 MG TABLET 1 TABLET WITH MEALS ORALLY TWICE A DAY TAKING JANUVIA 50 MG TABLET 1 TABLET ORALLY ONCE A DAY TAKING VITAMIN D 1000 UNIT TABLET 2 TABLET ORALLY DAILY TAKING ATORVASTATIN CALCIUM 40 MG TABLET 1 TABLET ORALLY ONCE A DAY TAKING ALBUTEROL SULFATE (2.5 MG/3ML) 0.083% NEBULIZATION SOLUTION 3 ML INHALATION THREE TIMES A DAY NEEDED TAKING SODIUM POLYSTYRENE SULFONATE 15 GM/60ML SUSPENSION 60 ML ORALLY ONCE A DAY TAKING OMEPRAZOLE 40 MG CAPSULE DELAYED RELEASE 1 CAPSULE ORALLY ONCE A DAY TAKING ACETAMINOPHEN 325 MG TABLET 1 TABLET NEEDED ORALLY EVERY 4 HRS TAKING TOUJEO SOLOSTAR 300 UNIT/ML SOLUTION PEN-INJECTOR SUBCUTANEOUS 20 UNITS NIGHTLY TAKING SINGULAIR 10 MG TABLET 1 TABLET ORALLY ONCE A DAY TAKING FUROSEMIDE 80 MG TABLET 1 TABLET ORALLY BID TAKING ZOFRAN 4 MG TABLET 1 CAP ORALLY PRN TAKING ELIQUIS 5 MG TABLET ORALLY BID TAKING SPIRIVA HANDIHALER 18 MCG CAPSULE 1 CAPSULE INHALATION ONCE A DAY TAKING IPRATROPIUM-ALBUTEROL 0.5-2.5 (3) MG/3ML SOLUTION 3 ML INHALATION EVERY 6 HRS TAKING DICYCLOMINE HCL 10 MG CAPSULE 1 CAPSULE ORALLY FOUR TIMES A DAY PRN TAKING PROBIOTIC - CAPSULE DIRECTED ORALLY DAILY TAKING VITAMIN B12 1000 MCG TABLET EXTENDED RELEASE 1 TABLET ORALLY ONCE A DAY TAKING DIGOXIN 125 MCG TABLET 1 TABLET ORALLY ONCE A DAY TAKING TAMSULOSIN HCL 0.4 MG CAPSULE EXTENDED RELEASE 2 CAPSULE ORALLY DAILY TAKING GABAPENTIN 300 MG CAPSULE 1 CAPSULE ORALLY THREE TIMES A DAY TAKING ENDOCET 10-325 MG TABLET 1 ORALLY Q12 HR BID MDD2 TAKING TOPROL XL 25 MG TABLET EXTENDED RELEASE 24 HOUR 1 TABLET ORALLY ONCE A DAY NOT-TAKING GLIPIZIDE 10 MG TABLET 1 TABLET ORALLY TWICE A DAY NOT-TAKING LISINOPRIL 5 MG TABLET 1 TABLET ORALLY QOD NOT-TAKING AMIODARONE HCL 200 MG TABLET 1 TABLET ORALLY ONCE A DAY NOT-TAKING OXYCODONE-ACETAMINOPHEN 7.5-325 MG TABLET 1 TABLET NEEDED ORALLY EVERY 6 HRS MDD4 NOT-TAKING WARFARIN SODIUM 4 MG TABLET 1 TABLET ORALLY DAILY DIRECTED, NOTES: STOPPED 5 DAYS AGO, STARTED ON ELIQUIS NOT-TAKING METRONIDAZOLE 500 MG TABLET 1 TABLET ORALLY TWICE A DAY, NOTES: 2-3 DAYS AGO NOT-TAKING ENALAPRIL MALEATE 20 MG TABLET 1 TABLET ORALLY TWICE A DAY NOT-TAKING METOPROLOL TARTRATE 25 MG TABLET 1 TABLET ORALLY TWICE A DAY NOT-TAKING MONTELUKAST SODIUM 10 MG TABLET ORALLY ONCE A DAY NOT-TAKING ENTRESTO 24-26 MG TABLET 1 TABLET ORALLY TWICE A DAY NOT-TAKING CYCLOBENZAPRINE HCL 10 MG TABLET 1 TABLET NEEDED ORALLY Q8H PRN MEDICATION LIST REVIEWED AND RECONCILED WITH THE PATIENT PAST MEDICAL HISTORY 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 SOCIAL HISTORY GENERAL: TOBACCO USE ARE YOU A:FORMER SMOKER HOW LONG HAS IT BEEN SINCE YOU LAST SMOKED?6-12 MONTHS DIET: REGULAR. LANGUAGE LANGUAGES SPOKEN:IRANIAN DOMESTIC VIOLENCE DO YOU FEEL SAFE IN YOUR ENVIRONMENT?YES RECREATIONAL DRUG USE DRUG USE?NO EXERCISE: WALKS. LEARNING BARRIERS / SPECIAL NEEDS CHANGE FROM LAST VISIT?NO BARRIERS TO LEARNING?NO HEARING IMPAIRED?YES VISION IMPAIRED?YES :CORRECTIVE LENSES COGNITIVELY IMPAIRED?NO READINESS TO LEARN?YES LEARNING PREFERENCES?NO LEARNING CAPABILITIES PRESENT?YES EMOTIONAL BARRIERS?NO SPECIAL DEVICES?YES USES CRUTCHES ALSO :CANE LICENSED CUSTOMS BROKER NEEDED?NO PAIN CLINIC PFS, CLERGY, PUBLIC HEALTH REFERRALS PFS REFERRAL NEEDED?NO CLERGY REFERRAL NEEDED?NO PUBLIC HEALTH REFERRAL NEEDED?NO WAS THE PROVIDER NOTIFIED OF ANY PERTINENT INFO?NO HAS THE PATIENT BEEN EDUCATED REGARDING HIS/HER PLAN OF CARE?YES ENCOURAGED HEAT/COLD TO HELP WITH PAIN CONTROL. HAS THE PATIENT BEEN EDUCATED REGARDING PAIN, THE RISK FOR PAIN, THE IMPORTANCE OF EFFECTIVE PAIN MANAGEMENT, AND THE PAIN ASSESSMENT PROCESS?YES LATEX QUESTIONNAIRE LATEX ALLERGY : HAVE YOU EVER DEVELOPED ANY TYPE OF REACTION AFTER HANDLING LATEX PRODUCTS SUCH RUBBER GLOVES, CONDOMS, DIAPHRAGMS, BALLOONS, SOCKS, OR UNDERWEAR?NO LATEX ALLERGY : HAVE YOU EVER DEVELOPED ANY TYPE OF REACTION DURING OR AFTER DENTAL APPOINTMENT, VAGINAL/RECTAL EXAMINATION, SURGICAL PROCEDURE, OR ANY OTHER EXPOSURE?NO LATEX RISK : HAVE YOU EVER HAD ANY DIFFICULTY BREATHING OR HIVES AFTER EATING OR HANDLING ANY FRUITS, OR VEGETABLES; SUCH KIWI, BANANAS, STONE FRUITS, OR CHESTNUTSNO LATEX RISK : DO YOU HAVE A PREVIOUS PERSONAL HISTORY OF MORE THAN NINE SURGERIES, SPINA BIFIDA, OR REPEATED CATHERTIZATIONS? NO LATEX RISK : ARE YOU FREQUENTLY EXPOSED TO LATEX PRODUCTS IN YOUR OCCUPATION?NO DATE ASKED : 02/16/2019 CAFFEINE CAFFEINE USE?NO ADVANCE DIRECTIVE ADVANCE DIRECTIVE DISCUSSED WITH PATIENT:YES PATIENT DECLINED HCP INFORMATION AT THIS TIME. EPISCOPAL [id number] SABIANIST ALCOHOL SCREENING DID YOU HAVE A DRINK CONTAINING ALCOHOL IN THE PAST YEAR?NO POINTS0 INTERPRETATIONNEGATIVE 08/06/17 1044 REVIEWED BY 09/09/18 1412 REVIEWED WITH PT BVREVIEWED WITH PATIENT 02/16/19 1105 JSREVIEWED WITH PATIENT 04/03/19 1140 JS. HOSPITALIZATION/MAJOR DIAGNOSTIC PROCEDURE SURGERIES DOUBLE PNEUMONIA 12/2018 REVIEW OF SYSTEMS REVIEWED BY: PROVIDER: DEV DELGADO . CONSTITUTIONAL: ANY CHANGE IN YOUR MEDICAL CONDITION? NO . CHILLS NO . FEVER NO . INFECTION: DO YOU HAVE NEW INFECTIONS? NO . DO YOU HAVE HISTORY OF MRSA? NO . MUSCULOSKELETAL: ANY NEW PATTERNS OF PAIN OR NUMBNESS? NO . GASTROENTEROLOGY: ANY NEW CHANGE IN BOWEL CONTROL? NO . GENITOURINARY: ANY NEW CHANGE IN BLADDER CONTROL? NO . IS THERE A CHANCE YOU COULD BE ? NO . HEMATOLOGY/LYMPH: DO YOU TAKE ANY BLOOD THINNERS? (FOR EXAMPLE- COUMADIN, PLAVIX, AGGRENOX, PLATEL, PRADAXA, OR XARELTO) YES, SUE . WHEN WAS YOUR LAST DOSE? DATE: 04/03/19TIME: 0700 . NEUROLOGY: HAVE YOU FALLEN IN THE PAST 12 MONTHS? YES, STATES FALL LAST WEEK, LOST HIS BALANCE AND FELL BACKWARDS. STATES NO INJURIES ESCEPT A SCRAPE ON HIS ARM, NO ED VISIT . ANY NEW EXTREMITY NUMBNESS OR WEAKNESS? NO . CARDIOLOGY: DO YOU HAVE A PACEMAKER OR DEFIBRILLATOR? NO . RESPIRATORY: HAVE YOU BEEN SICK IN THE PAST WEEK? NO . FEVER NO . FLU LIKE SYMPTOMS? NO . COUGH NO . INTEGUMENTARY: DO YOU HAVE ANY RASHES OR OPEN SORES? NO . ALLERGIC/IMMUNO: ARE YOU ALLERGIC TO IV DYE? NO . ANY NEW ALLERGIES? NO . PSYCHIATRIC: DO YOU HAVE THOUGHTS OF HURTING YOURSELF OR SOMEONE ELSE? NO . ARE YOU ABUSED, NEGLECTED, OR IN AN UNSAFE ENVIRONMENT? NO . ENDOCRINOLOGY: ARE YOU DIABETIC? YES . OTHER: DO YOU NEED ANY PRESCRIPTIONS? NO . IF YES, PLEASE LIST: ____ . ANY NEW PROBLEMS WITH YOUR MEDICATIONS? NO . WHEN DID YOU LAST EAT? ____ . WHEN DID YOU LAST DRINK? ____ . WHAT DID YOU LAST DRINK? ____ . NAME OF PERSON DRIVING YOU HOME? ____ . DO YOU HAVE ANY OTHER QUESTIONS OR CONCERNS NO . VITAL SIGNS WT 200 LBS, HT 71 IN, BMI 27.89 INDEX, BP 123/57 MM HG, HR 91 /MIN, RR 18 /MIN, TEMP 97.8 F, OXYGEN SAT % 91% ON 3L O2, SAFE IN ENV? (Y/N) YES, NA INITIALS IN 11:32, REVIEWED BY: BECCA. EXAMINATION GENERAL EXAMINATION: GENERAL APPEARANCE:AWAKE,ALERT ,PLEAASANT . PSYCHAFFECT NORMAL . LUNGS:LUNG ESPINOZA ARE CLEAR TO AUSCULTATION BILATERALLY. GOOD MOVEMENT OF AIR . HEART:S1, S2 IN A REGULAR RATE AND RHYTHM. NO SIGNIFICANT MURMURS, RUBS OR GALLOPS NOTED . ASSESSMENTS LOW BACK PAIN OF OVER 3 MONTHS DURATION - M54.5 (PRIMARY) TREATMENT LOW BACK PAIN OF OVER 3 MONTHS DURATION INCREASE ENDOCET TABLET, 10-325 MG, 1, ORALLY, Q8H PRN MDD3, 30 DAY(S), 90, REFILLS 0 NOTES: ISTOP REGISTRY REVIEWED AND DEMONSTRATES COMPLLIANCE. (REF # ) BRINGS IN MEDICATIONS WHICH IS APPROPRIATE FOR WHAT WAS DISPENSED. RECENT URINE TOXICOLOGY REVIEWED. NO UNAUTHORIZED MEDICATIONS. NO ILLICIT SUBSTANCES AND PRESCRIBED MEDICATIONS WERE PRESENT. URINE TOX TODAY, [facility] NARCOTIC AGREEMENT WAS REVIEWED UPDATED AND SIGNED TODAY BY THE PATIENT. SEE ATTACHED DOCUMENT FOR FULL DETAILS; SPECIFIC ISSUES WERE REVIEWED: 1) KEEP PAIN MEDS IN THEIR ORIGINAL BOTTLES AND ANY WEEKLY PLANNERS ARE TO BE BROUGHT TO THE PAIN CENTER AT EVERY VISIT. 2) THE PATIENT IS NOT TO INCREASE DOSING OR TIMING OF THEIR PAIN MEDICATION WITHOUT SPECIFIC DIRECTION OF THEIR PAIN CENTERPROVIDER (NOT ER OR OTHER PROVIDERS). 3) ALL PAIN MEDS ARE TO BE KEPT SECURED, IN A LOCKED BOX. 4) NO PAIN MEDS ARE TO BE SHARED WITH ANY OTHER PERSON FOR ANY REASON. 5) NO PAIN MEDS MAY BE TAKEN FROM ANY FRIENDS OR RELATIVES FOR ANY REASON 6) NO MEDS OR SUBSTANCES WHICH ARE NOT LEGAL ARE TO BE USED- NO MARIJUANA, NO COCAINE, AMPHETAMINES, HEROIN, OR OTHERS ARE EVER TO BE USED. 7)URINE TESTING IS DONE TO ACCOUNT FOR MEDS AND SUBSTANCES BEING TAKEN AND WILL BE DONE RANDOMLY., RISKS AND BENEFITS OF NARCOTIC/OPIOD MEDICATIONS WERE REVIEWED WITH PATIENT - THIS INCLUDES BUT IS NOT LIMITED TO RISK OF DEPENDANCE/DEVELOPMENT OF ADDICTION, MOOD DISTURBANCE AND DEPRESSION, OSTEOPOROSIS, HORMONAL AND LABIDAL CHANGES, RESPIRATORY DEPRESSION AND . PATIENT IS ADVISED NOT TO DRIVE OR DRINK ALCOHOL WHILE ON THESE MEDICATIONS. DISPOSITION & COMMUNICATION FOLLOW UP 6-8-WKS ELECTRONICALLY SIGNED BY DANNY CAZARES ON 04/17/2019 AT 03:14 PM EDT DISCLAIMER : THIS IS A VISIT SUMMARY EXTRACTED FROM THE [employer] CHART. IT IS NOT A COPY OF THE [employer] PROGRESS NOTE. RAMANDEEP
== END ==
LOC: M PAIN 11:15
PROVIDERS: ATTEND Nurse Practitioner Family
DX: M54.5 Low back pain (principal); G89.29 Other chronic pain; E11.9 Type 2 diabetes mellitus without complications; I48.91 Unspecified atrial fibrillation; Z87.891 Personal history of nicotine dependence; Z88.1 Allergy status to other antibiotic agents; Z79.01 Long term (current) use of anticoagulants; Z79.82 Long term (current) use of aspirin; Z79.4 Long term (current) use of insulin; Z79.891 Long term (current) use of opiate analgesic; Z79.899 Other long term (current) drug therapy